=== PATIENT | female | born 1985 | race Caucasian/White ===

== ENCOUNTER → 2018-11-02 | Outpatient (CLI) | payer OTHER ==
--- NOTE | 2018-11-02 14:37 | US ---
EXAMINATION TYPE: US thyroid st tissue head/neck DATE OF EXAM: 11/02/2018 COMPARISON: 05/04/2011 CLINICAL HISTORY: E04.1 SINGLE THYROID NODULE. Assess for possible nodules, abnormal labs, not on med s yet GLAND SIZE: Right Lobe: 5.3 x 1.8 x 1.8 cm Overall Parenchyma: heterogenous Left Lobe: 4.5 x 1.8 x 1.5 cm Overall Parenchyma: heterogeneous Isthmus Thickness: 0.4 cm NODULES RIGHT: # of nodules measured on right: 0 LEFT: # of nodules measured on left: 0 ISTHMUS: # of nodules measured in the isthmus: 0 Bilateral neck scanned, no evidence of lymphadenopathy. Diffusely heterogeneous lobes bilaterally IMPRESSION: Diffuse thyroid heterogeneity and hypervascularity can be seen as sequela of thyroiditis. Additionally this can be seen in chronic Em's thyroiditis with chronic lymphocytic infiltrati on.
== END | disposition home or self-care (01) ==
LOC: RADUSWWP 13:31
PROVIDERS: ATTEND Family Medicine
DX: E07.9 Disorder of thyroid, unspecified (principal)
CPT/HCPCS: 76536

== ENCOUNTER → 2018-11-07 | Outpatient (CLI) | payer OTHER ==
--- NOTE | 2018-11-24 19:29 | EM ---
EVENT MONITOR AGE:: 33 SEX:: Female The patient was monitored between November 07 and November 20, 2018. The rhythm strip revealed sinus mechanism with episodes of sinus tachycardia and one rhythm strip of single PVC. OTIS / ATIFN: [id number] /
== END | disposition home or self-care (01) ==
LOC: RADECHMAIN 12:11
PROVIDERS: ATTEND Family Medicine
DX: I49.3 Ventricular premature depolarization (principal); R00.0 Tachycardia, unspecified
CPT/HCPCS: 93270

== ENCOUNTER 2019-03-11 20:27 | Emergency (ER) | payer OTHER ==
[2019-03-11] MEDS ORDERED: SODIUM CHLORIDE 0.9% 1,000 ML IV STA ×2 (21:50)
--- NOTE | 2019-03-11 22:30 | ED ---
Back Pain HPI - General Chief Complaint: Back Pain/Injury Stated Complaint: Abn labs Time Seen by Provider: 03/11/19 21:22 Source: patient, family, RN notes reviewed, old records reviewed Limitations: no limitations - History of Present Illness Initial Comments: This is a 33-year-old female the ER for evaluation she presents today for evaluation regards to back pain and weakness history of renal failure history of kidney pain. Pain is increasing, weight loss is increasing. Patient having difficulty taking in oral fluids and food. Patient has decreased urinary output. Patient presents from urgent care center to ER for further evaluation and management patient has history of similar complaints she states she was admitted to a different hospital about a year ago at this time MD Complaint: back pain, other (History of kidney disease, patient is poor historian regarding diaper cause) -: hour(s) Similar Symptoms Previously: Yes Place: home Radiation: none Severity: moderate Severity scale (1-10): 4 Consistency: constant Improves With: none Worsens With: none Associated Symptoms: denies other symptoms - Related Data Previous Rx's Medication Instructions Recorded Nitrofurantoin Monohyd/M-Cryst 100 mg PO Q12HR #20 cap 03/12/19 [Macrobid] Allergies Allergy/AdvReac Type Severity Reaction Status Date / Time Penicillins Allergy Vomiting Verified 03/11/19 21:51 Review of Systems ROS Statement: Those systems with pertinent positive or pertinent negative responses have been documented in the HPI. ROS Other: All systems not noted in ROS Statement are negative. Past Medical History Past Medical History: Thyroid Disorder Additional Past Medical History / Comment(s): hashimotos, History of Any Multi-Drug Resistant Organisms: None Reported Past Surgical History: Orthopedic Surgery, Tonsillectomy Additional Past Surgical History / Comment(s): knee Past Psychological History: Anxiety Smoking Status: Never smoker Past Alcohol Use History: Rare Past Drug Use History: None Reported General Exam Limitations: no limitations General appearance: alert, in no apparent distress Head exam: Present: atraumatic, normocephalic, normal inspection Eye exam: Present: normal appearance, EOMI. Absent: scleral icterus, conjunctival injection, periorbital swelling ENT exam: Present: normal exam, mucous membranes moist Neck exam: Present: normal inspection. Absent: tenderness, meningismus, lymphadenopathy Respiratory exam: Present: normal lung sounds bilaterally. Absent: respiratory distress, wheezes, rales, rhonchi, stridor Cardiovascular Exam: Present: regular rate, normal rhythm, tachycardia, normal heart sounds. Absent: systolic murmur, diastolic murmur, rubs, gallop, clicks GI/Abdominal exam: Present: soft, normal bowel sounds. Absent: distended, te nderness, guarding, rebound, rigid Extremities exam: Present: normal inspection, full ROM, normal capillary refill. Absent: tenderness, pedal edema, joint swelling, calf tenderness Back exam: Present: normal inspection Neurological exam: Present: alert, oriented X3, CN II-XII intact Psychiatric exam: Present: normal affect, normal mood Skin exam: Present: warm, dry, intact, normal color. Absent: rash Course Vital Signs 03/11/19 03/11/19 20:40 23:33 Temperature 99.3 F Pulse Rate 110 H 89 Respiratory 20 19 Rate Blood Pressure 108/69 106/76 O2 Sat by Pulse 96 97 Oximetry - Reevaluation(s) Reevaluation #1: 03/12/19 00:08 Medical record is reviewed Reevaluation #2: 03/12/19 00:08 patient is tolerating oral medications Medical Decision Making - Medical Decision Making 33 male to the ED c/o not feeling well back pain, pyelonephritis, patient will be discharged on antibiotics to return if symptoms worsen - Lab Data Result diagrams: 03/11/19 22:26 03/11/19 22:26 Lab Results 03/11/19 03/11/19 03/11/19 Range/Units 22:26 22:26 22:46 WBC 11.9 H (3.8-10.6) k/uL RBC 4.11 (3.80-5.40) m/uL Hgb 12.6 (11.4-16.0) gm/dL Hct 34.7 (34.0-46.0) % MCV 84.5 (80.0-100.0) fL MCH 30.7 (25.0-35.0) pg MCHC 36.3 (31.0-37.0) g/dL RDW 11.9 (11.5-15.5) % Plt Count 171 (150-450) k/uL Neutrophils % 72 % Lymphocytes % 16 % Monocytes % 8 % Eosinophils % 1 % Basophils % 1 % Neutrophils # 8.5 H (1.3-7.7) k/uL Lymphocytes # 1.9 (1.0-4.8) k/uL Monocytes # 1.0 (0-1.0) k/uL Eosinophils # 0.1 (0-0.7) k/uL Basophils # 0.1 (0-0.2) k/uL Sodium 133 L (137-145) mmol/L Potassium 3.3 L (3.5-5.1) mmol/L Chloride 98 (98-107) mmol/L Carbon Dioxide 25 (22-30) mmol/L Anion Gap 10 mmol/L BUN 10 (7-17) mg/dL Creatinine 0.64 (0.52-1.04) mg/dL Est GFR (CKD-EPI)AfAm >90 (>60 ml/min/1.73 sqM) Est GFR (CKD-EPI)NonAf >90 (>60 ml/min/1.73 sqM) Glucose 122 H (74-99) mg/dL Calcium 8.5 (8.4-10.2) mg/dL Phosphorus 2.4 L (2.5-4.5) mg/dL Magnesium 1.9 (1.6-2.3) mg/dL Total Bilirubin 0.3 (0.2-1.3) mg/dL AST 24 (14-36) U/L ALT 17 (9-52) U/L Alkaline Phosphatase 60 (38-126) U/L Creatine Kinase 451 H (30-135) U/L Total Protein 6.7 (6.3-8.2) g/dL Albumin 3.7 (3.5-5.0) g/dL Urine Color Yellow Urine Appearance Cloudy H (Clear) Urine pH 6.0 (5.0-8.0) Ur Specific [place] 1.022 (1.001-1.035) Urine Protein 1+ H (Negative) Urine Glucose (UA) Negative (Negative) Urine Ketones 2+ H (Negative) Urine Blood Large H (Negative) Urine Nitrite Negative (Negative) Urine Bilirubin Negative (Negative) Urine Urobilinogen 2.0 (<2.0) mg/dL Ur Leukocyte Esterase Large H (Negative) Urine RBC 6 H (0-5) /hpf Urine WBC >182 H (0-5) /hpf Urine WBC Clumps Few H (None) /hpf Ur Squamous Epith Cells 16 H (0-4) /hpf Urine Bacteria Occasional H (None) /hpf Urine Mucus Many H (None) /hpf - EKG Data -: EKG Interpreted by Me (EKG shows sinus rhythm rate of 70, VA 140, QRS 94, QTC 443) - Radiology Data Radiology results: report reviewed (CT ofabdomen and pelvis is negative for ac re disease), image reviewed Disposition Clinical Impression: UTI (urinary tract infection), Pyelonephritis Disposition: HOME SELF-CARE Condition: Good Prescriptions: Nitrofurantoin Monohyd/M-Cryst [Macrobid] 100 mg PO Q12HR #20 cap Is patient prescribed a controlled substance at d/c from ED?: No Referrals: Angel Forrester DO [Primary Care Provider] - 1-2 days
[2019-03-11 22:37] LABS: Basophils # (A) 0.1 k/uL (0-0.2); Basophils % (A) 1 %; Eosinophils # (A) 0.1 k/uL (0-0.7); Eosinophils % (A) 1 %; HCT 34.7 % (34.0-46.0); HGB 12.6 gm/dL (11.4-16.0); Lymphocytes # (A) 1.9 k/uL (1.0-4.8); Lymphocytes % (A) 16 %; MCH 30.7 pg (25.0-35.0); MCHC 36.3 g/dL (31.0-37.0); MCV 84.5 fL (80.0-100.0); Mean Platelet Volume 6.2; Monocytes % (A) 8 %; Neutrophils # (A) 8.5 k/uL (1.3-7.7); Neutrophils % (A) 72 %; Platelet Count 171 k/uL (150-450); RBC 4.11 m/uL (3.80-5.40); RDW 11.9 % (11.5-15.5); WBC 11.9 k/uL (3.8-10.6)
[2019-03-11] MEDS: MORPHINE SULFATE 4 MG/ML SYRINGE IVP STA ×2 (22:39→23:32)
[2019-03-11 22:48] LABS: ALT 17 U/L (9-52); AST 24 U/L (14-36); African American GFR (CKD) >90 (>60 ml/min/1.73 sqM); Albumin 3.7 g/dL (3.5-5.0); Alkaline Phosphatase 60 U/L (38-126); Anion Gap 10 mmol/L; Blood Urea Nitrogen 10 mg/dL (7-17); Calcium 8.5 mg/dL (8.4-10.2); Carbon Dioxide 25 mmol/L (22-30); Chloride 98 mmol/L (98-107); Creatine Kinase 451 U/L (30-135); Glucose 122 mg/dL (74-99); Magnesium 1.9 mg/dL (1.6-2.3); Phosphorus 2.4 mg/dL (2.5-4.5); Potassium 3.3 mmol/L (3.5-5.1); Sodium 133 mmol/L (137-145); Total Bilirubin 0.3 mg/dL (0.2-1.3); Total Protein 6.7 g/dL (6.3-8.2)
[2019-03-11 22:56] LABS: Appearance,Urine Cloudy (Clear); Bacteria,Urine Occasional /hpf; Bilirubin,Urine Negative (Negative); Blood,Urine Large (Negative); Color,Urine Yellow; Glucose,Urine (UA) Negative (Negative); Ketones,Urine 2+ (Negative); Leukocyte Esterase,Urine Large (Negative); Mucus,Urine Many /hpf; Nitrite,Urine Negative (Negative); Protein,Urine 1+ (Negative); RBC,Urine 6 /hpf (0-5); Specific Gravity,Urine 1.022 (1.001-1.035); Squamous Epithelial Cell,Urine 16 /hpf (0-4); WBC,Urine >182 /hpf (0-5)
--- NOTE | 2019-03-11 23:05 | CT ---
EXAMINATION TYPE: CT abdomen pelvis wo con DATE OF EXAM: 03/11/2019 COMPARISON: None HISTORY: bilateral flank pain CT DLP: 271.4 mGycm Automated exposure control for dose reduction was used. TECHNIQUE: Helical acquisition of images was performed from the lung bases through the pelvis. FINDINGS: Lung bases are clear. There is no pleural effusion. Heart size is normal. Liver spleen pancreas gallbladder appear normal. Bile ducts are not dilated. There is no adrenal mass . Stomach appears normal. Kidneys have normal size. There is no hydronephrosis. Ureters are not dilat ed. There is no retroperitoneal adenopathy. Bladder distends smoothly. There is no free fluid in the pelvis. Lumbar spine appears intact. Bony pelvis is intact. Disc spaces are normal. Uterus is retrove rted. There is no mesenteric edema. There is no ascites or free air. Appendix is not seen. There is no sign of thickened appendix. IMPRESSION: NEGATIVE CT SCAN ABDOMEN AND PELVIS. NO EVIDENCE OF RENAL STONE OR OBSTRUCTION. NO SIGN OF APPENDICIT IS.
[2019-03-12 00:23] VITALS: RESP 18
[2019-03-12 02:17] VITALS: BP 100/69; PULSE 93; TEMP 98.1
== END 2019-03-12 02:17 | disposition home or self-care (01) ==
LOC: EC 20:27
DX: N12 Tubulo-interstitial nephritis, not specified as acute or chronic (principal); R00.0 Tachycardia, unspecified; R53.1 Weakness; R63.4 Abnormal weight loss; Z88.0 Allergy status to penicillin; Z87.448 Personal history of other diseases of urinary system; Z68.1 Body mass index [BMI] 19.9 or less, adult; Z53.20 Procedure and treatment not carried out because of patient's decision for unspecified reasons
CPT/HCPCS: 36415 ×2; 93005; 80053; 82550; 83735; 84100; 85025; 81001; 87040; 74176; 99284; 96365; 96366; 96361 ×2; J0696

== ENCOUNTER → 2019-06-27 | Outpatient (CLI) | payer OTHER ==
--- NOTE | 2019-06-28 07:21 | US ---
EXAMINATION TYPE: US thyroid st tissue head/neck DATE OF EXAM: 06/27/2019 COMPARISON: US 2016 CLINICAL HISTORY: E06.3 Autoimmune thyroiditis. Autoimmune thyroiditis. Patient's mother had hx of th yroid cancer. GLAND SIZE: Right Lobe: 5.2 x 1.9 x 1.5 cm Overall Parenchyma: heterogenous Left Lobe: 4.9 x 2.0 x 1.3 cm Overall Parenchyma: heterogeneous Isthmus Thickness: 0.31 cm NODULES RIGHT: # of nodules measured on right: 1 1. 0.5 X 0.5 x 0.3 cm anechoic cystic nodule at the lower pole with well-defined margins. This nod ule is wider than tall and shows peripheral vascularity. Prior size: no prior LEFT: # of nodules measured on left: 1 1. 0.4 X 0.6 x 0.3 cm anechoic cystic nodule at the mid pole with well-defined margins. This nodul e is wider than tall and shows peripheral vascularity. Prior size: no prior ISTHMUS: # of nodules measured in the isthmus: 0 Bilateral neck scanned. Hypoechoic area with hyperechoic center and vascularity (lymph node) seen rig ht neck measurin.6 x 0.7 x 0.3 cm. Hypoechoic area with hyperechoic center and vascularity (lymph node) seen left neck measurin.6 x 0.6 x 0.6 cm. Hypoechoic area seen (lymph node) inferior to left thyroid lobe measurin.0 x 0.6 x 0.7 cm. IMPRESSION: The thyroid gland is diffusely heterogenous and hyperechoic, which can be seen in acute o r chronic thyroiditis. There are subcentimeter cystic-appearing bilateral thyroid nodules that appear benign.
== END | disposition home or self-care (01) ==
LOC: RADUSWWP 16:56
PROVIDERS: ATTEND Family Medicine
DX: E04.2 Nontoxic multinodular goiter (principal); E07.89 Other specified disorders of thyroid
CPT/HCPCS: 76536

== ENCOUNTER 2019-08-31 10:09 | Emergency (ER) | payer OTHER ==
[2019-08-31 10:14] VITALS: TEMP 97.9
[2019-08-31] MEDS ORDERED: SODIUM CHLORIDE 0.9% 1,000 ML IV STA (11:06)
[2019-08-31] MEDS ORDERED: ACETAMINOPHEN TAB 500 MG TAB PO STA (11:06)
--- NOTE | 2019-08-31 11:17 | ED ---
General Adult HPI - General Chief complaint: Abdominal Pain Stated complaint: poss ectopic Time Seen by Provider: 08/31/19 10:19 Source: patient, RN notes reviewed Mode of arrival: ambulatory - History of Present Illness Initial comments: 33-year-old female presents to the emergency dept for chief complaint of abdominal pain. Patient states she found out she was a few days ago. States that yesterday around 10 PM she started to have abdominal pain and vaginal bleeding. States this is mostly in the right lower abdomen. Patient states she called her [facility] Dr. Pearl and the nurse told her to come to the emergency department for evaluation of ectopic . Patient denies bleeding through a pad an hour. Patient has no other complaints at this time including shortness of breath, chest pain, nausea or vomiting, headache, or visual changes. - Related Data Previous Rx's Medication Instructions Recorded Nitrofurantoin Monohyd/M-Cryst 100 mg PO Q12HR #20 cap 03/12/19 [Macrobid] Allergies Allergy/AdvReac Type Severity Reaction Status Date / Time Penicillins Allergy Vomiting Verified 08/31/19 10:14 Review of Systems ROS Statement: Those systems with pertinent positive or pertinent negative responses have been documented in the HPI. ROS Other: All systems not noted in ROS Statement are negative. Past Medical History Past Medical History: Thyroid Disorder Additional Past Medical History / Comment(s): hashimotos, History of Any Multi-Drug Resistant Organisms: None Reported Past Surgical History: Orthopedic Surgery, Tonsillectomy Additional Past Surgical History / Comment(s): knee Past Psychological History: Anxiety Smoking Status: Never smoker Past Alcohol Use History: Rare Past Drug Use History: None Reported General Exam General appearance: alert, in no apparent distress Head exam: Present: atraumatic, normocephalic, normal inspection Eye exam: Present: normal appearance, PERRL, EOMI. Absent: scleral icterus, conjunctival injection, periorbital swelling ENT exam: Present: normal exam, mucous membranes moist Neck exam: Present: normal inspection, full ROM. Absent: tenderness, mening ismus, lymphadenopathy Respiratory exam: Present: normal lung sounds bilaterally. Absent: respiratory distress, wheezes, rales, rhonchi, stridor Cardiovascular Exam: Present: regular rate, normal rhythm, normal heart sounds. Absent: systolic murmur, diastolic murmur, rubs, gallop, clicks GI/Abdominal exam: Present: soft, normal bowel sounds. Absent: distended, tenderness, guarding, rebound, rigid External exam: Present: normal external exam. Absent: erythema, swelling, lesions, lacerations, ecchymosis Speculum exam: Present: vaginal bleeding (Minimal vaginal bleeding). Absent: normal speculum exam, erythema, vaginal discharge, cervical discharge, foreign body, tissue, laceration By manual exam: Present: adnexal tenderness (Right adnexal tenderness), uterine tenderness (Uterine tenderness). Absent: normal by manual exam, cervical motion tenderness, adnexal mass, uterine enlargement Neurological exam: Present: alert Course Vital Signs 08/31/19 08/31/19 08/31/19 10:10 10:13 11:13 Temperature 97.9 F Pulse Rate 99 83 Respiratory 16 20 20 Rate Blood Pressure 161/93 118/78 O2 Sat by Pulse 99 100 Oximetry Medical Decision Making - Medical Decision Making Patient is a 33-year-old female. She is well-appearing. Her vitals are stable. Physical exam did reveal right lower quadrant tenderness with rebound and guarding. CBC CMP unremarkable. HCG Quant is 6.9. Troponin is negative. Ultrasound obtained which showed findings likely to reflect too early to visualize IUP but spontaneous and ectopic in the differential. Patient should be about 4 weeks at this point. I called Dr. Santana who is on-call for Dr. Pearl. He states the patient likely miscarried as it would need to be trending down given a positive urine preg would have to show an hCG of 50. At this time given her positive exam finds her cannot rule out appendicitis. He states he would not treat this patient as a burning patient and would get a CAT scan to rule out other etiologies. I do agree with this. I discussed this with patient and she is also in agreement. CT abdomen and pelvis showed presence of a right ovarian or adnexal mass and pelvic free fluid which increases possibility of ectopic when correlating CT with ultrasound. Differential remains this versus too early to visualize and spontaneous . Appendix appears normal. I discussed this with Dr. Santana. He did come and evaluate patient. Patient's abdominal exam has improved and her pain is much more managed. Discussed options with patient including watching overnight. However given improvement in symptoms patient is agreeable to monitoring herself at home and returning here for any worsening symptoms. She will be given a prescription for repeat hCG on Tuesday as it is likely she miscarried as well as to evaluate further for ectopic . Discussed that she will likely have a repeat ultrasound outpatient after she sees her [facility]. She will call the office Tuesday for an appointment. She will return for any worsening symptoms which were discussed thoroughly with her. Str ict return precautions given. - Lab Data Result diagrams: 08/31/19 10:25 08/31/19 10: Lab Results 08/31/19 08/31/19 08/31/19 Range/Units 10:25 10:25 10:25 WBC 6.9 (3.8-10.6) k/uL RBC 4.85 (3.80-5.40) m/uL Hgb 14.9 (11.4-16.0) gm/dL Hct 44.1 (34.0-46.0) % MCV 90.8 (80.0-100.0) fL MCH 30.7 (25.0-35.0) pg MCHC 33.8 (31.0-37.0) g/dL RDW 12.1 (11.5-15.5) % Plt Count 251 (150-450) k/uL Neutrophils % 70 % Lymphocytes % 20 % Monocytes % 7 % Eosinophils % 1 % Basophils % 0 % Neutrophils # 4.9 (1.3-7.7) k/uL Lymphocytes # 1.4 (1.0-4.8) k/uL Monocytes # 0.5 (0-1.0) k/uL Eosinophils # 0.1 (0-0.7) k/uL Basophils # 0.0 (0-0.2) k/uL Sodium 139 (137-145) mmol/L Potassium 3.5 (3.5-5.1) mmol/L Chloride 103 (98-107) mmol/L Carbon Dioxide 24 (22-30) mmol/L Anion Gap 12 mmol/L BUN 10 (7-17) mg/dL Creatinine 0.63 (0.52-1.04) mg/dL Est GFR (CKD-EPI)AfAm >90 (>60 ml/min/1.73 sqM) Est GFR (CKD-EPI)NonAf >90 (>60 ml/min/1.73 sqM) Glucose 91 (74-99) mg/dL Calcium 9.3 (8.4-10.2) mg/dL Total Bilirubin 0.4 (0.2-1.3) mg/dL AST 30 (14-36) U/L ALT 15 (4-34) U/L Alkaline Phosphatase 72 (38-126) U/L Total Protein 8.6 H (6.3-8.2) g/dL Albumin 5.1 H (3.5-5.0) g/dL HCG, Quant 6.9 mIU/mL Urine Color Urine Appearance (Clear) Urine pH (5.0-8.0) Ur Specific [place] (1.001-1.035) Urine Protein (Negative) Urine Glucose (UA) (Negative) Urine Ketones (Negative) Urine Blood (Negative) Urine Nitrite (Negative) Urine Bilirubin (Negative) Urine Urobilinogen (<2.0) mg/dL Ur Leukocyte Esterase (Negative) Urine RBC (0-5) /hpf Urine WBC (0-5) /hpf Ur Squamous Epith Cells (0-4) /hpf Amorphous Sediment (None) /hpf Urine Bacteria (None) /hpf Trichomonas Ag (Rapid) (Negative) Blood Type O Positive Blood Type Recheck O Pos Bld Type Recheck Status No 08/31/19 08/31/19 Range/Units 10:29 11:10 WBC (3.8-10.6) k/uL RBC (3.80-5.40) m/uL Hgb (11.4-16.0) gm/dL Hct (34.0-46.0) % MCV (80.0-100.0) fL MCH (25.0-35.0) pg MCHC (31.0-37.0) g/dL RDW (11.5-15.5) % Plt Count (150-450) k/uL Neutrophils % % Lymphocytes % % Monocytes % % Eosinophils % % Basophils % % Neutrophils # (1.3-7.7) k/uL Lymphocytes # (1.0-4.8) k/uL Monocytes # (0-1.0) k/uL Eosinophils # (0-0.7) k/uL Basophils # (0-0.2) k/uL Sodium (137-145) mmol/L Potassium (3.5-5.1) mmol/L Chloride (98-107) mmol/L Carbon Dioxide (22-30) mmol/L Anion Gap mmol/L BUN (7-17) mg/dL Creatinine (0.52-1.04) mg/dL Est GFR (CKD-EPI)AfAm (>60 ml/min/1.73 sqM) Est GFR (CKD-EPI)NonAf (>60 ml/min/1.73 sqM) Glucose (74-99) mg/dL Calcium (8.4-10.2) mg/dL Total Bilirubin (0.2-1.3) mg/dL AST (14-36) U/L ALT (4-34) U/L Alkaline Phosphatase (38-126) U/L Total Protein (6.3-8.2) g/dL Albumin (3.5-5.0) g/dL HCG, Quant mIU/mL Urine Color Yellow Urine Appearance Clear (Clear) Urine pH 7.0 (5.0-8.0) Ur Specific [place] 1.005 (1.001-1.035) Urine Protein Trace H (Negative) Urine Glucose (UA) Negative (Negative) Urine Ketones Negative (Negative) Urine Blood Large H (Negative) Urine Nitrite Negative (Negative) Urine Bilirubin Negative (Negative) Urine Urobilinogen <2.0 (<2.0) mg/dL Ur Leukocyte Esterase Negative (Negative) Urine RBC 1 (0-5) /hpf Urine WBC 2 (0-5) /hpf Ur Squamous Epith Cells 1 (0-4) /hpf Amorphous Sediment Rare H (None) /hpf Urine Bacteria Rare H (None) /hpf Trichomonas Ag (Rapid) Negative (Negative) Blood Type Blood Type Recheck Bld Type Recheck Status Disposition Clinical Impression: Ovarian cyst, Abdominal pain Disposition: HOME SELF-CARE Condition: Good Instructions (If sedation given, give patient instructions): Abdominal Pain (ED) Additional Instructions: Repeat hCG on Tuesday. The results will be sent to Dr. Pearl. Call Dr. Pearl's office on Tuesday to schedule an appointment. If you have any worsening symptoms over the weekend such as increased abdominal pain return to the emergency department. You may take Tylenol 3 for pain but do not drive or operate machinery while taking. Is patient prescribed a controlled substance at d/c from ED?: No Referrals: Mirela Rivas MD [Primary Care Provider] - 1-2 days Brett Pearl MD [STAFF PHYSICIAN] - 1-2 days Time of Disposition: 15:15
[2019-08-31 11:22] VITALS: RESP 20
[2019-08-31 11:24] VITALS: PULSE 83
[2019-08-31 11:58] LABS: Basophils % (A) 0 %; Eosinophils # (A) 0.1 k/uL (0-0.7); Eosinophils % (A) 1 %; HCT 44.1 % (34.0-46.0); HGB 14.9 gm/dL (11.4-16.0); Lymphocytes # (A) 1.4 k/uL (1.0-4.8); Lymphocytes % (A) 20 %; MCH 30.7 pg (25.0-35.0); MCHC 33.8 g/dL (31.0-37.0); MCV 90.8 fL (80.0-100.0); Mean Platelet Volume 7.6; Monocytes # (A) 0.5 k/uL (0-1.0); Monocytes % (A) 7 %; Neutrophils # (A) 4.9 k/uL (1.3-7.7); Neutrophils % (A) 70 %; Platelet Count 251 k/uL (150-450); RBC 4.85 m/uL (3.80-5.40); RDW 12.1 % (11.5-15.5); WBC 6.9 k/uL (3.8-10.6)
[2019-08-31 12:10] LABS: ALT 15 U/L (4-34); AST 30 U/L (14-36); African American GFR (CKD) >90 (>60 ml/min/1.73 sqM); Albumin 5.1 g/dL (3.5-5.0); Alkaline Phosphatase 72 U/L (38-126); Anion Gap 12 mmol/L; Blood Urea Nitrogen 10 mg/dL (7-17); Calcium 9.3 mg/dL (8.4-10.2); Carbon Dioxide 24 mmol/L (22-30); Chloride 103 mmol/L (98-107); Glucose 91 mg/dL (74-99); Non-African American GFR(CKD) >90 (>60 ml/min/1.73 sqM); Potassium 3.5 mmol/L (3.5-5.1); Sodium 139 mmol/L (137-145); Total Bilirubin 0.4 mg/dL (0.2-1.3); Total Protein 8.6 g/dL (6.3-8.2)
[2019-08-31 12:11] LABS: Amorphous Sediment,Urine Rare /hpf; Appearance,Urine Clear (Clear); Bacteria,Urine Rare /hpf; Bilirubin,Urine Negative (Negative); Blood,Urine Large (Negative); Color,Urine Yellow; Glucose,Urine (UA) Negative (Negative); Ketones,Urine Negative (Negative); Leukocyte Esterase,Urine Negative (Negative); Nitrite,Urine Negative (Negative); Protein,Urine Trace (Negative); RBC,Urine 1 /hpf (0-5); Specific Gravity,Urine 1.005 (1.001-1.035); Squamous Epithelial Cell,Urine 1 /hpf (0-4); Urobilinogen,Urine <2.0 mg/dL (<2.0); WBC,Urine 2 /hpf (0-5)
--- NOTE | 2019-08-31 12:21 | US ---
EXAMINATION TYPE: Transabdominal DATE OF EXAM: 08/31/2019 12:04 PM COMPARISON: NONE CLINICAL HISTORY: pain, r/o ectopic. Right side pain. No hx ectopic. EXAM PERFORMED: Transvaginal (TV) and Transabdominal (TA) EXAM MEASUREMENTS: GESTATIONAL AGE / DATING Dates by LMP: (4 weeks/4 days) EDC: 05/05/2020 Dates by Current Scan for: No IUP seen at this time MATERNAL ANATOMY Uterus: 7.6 x 4.9 x 4.2 cm Right Ovary: 5.1 x 4.2 x 4.2 cm. Cystic appearing lesion = 3.7 x 3.6 x 3.5 cm Left Ovary: 2.4 x 1.4 x 0.9 cm Post CDS / Adnexa: no free fluid in CDS. FF seen adjacent to right ovary. Presence of free fluid: no Presence of corpus luteal cyst: no Presence of subchorionic bleed: no GESTATION / SURVEY IUP: No IUP seen at this time Date of LMP: 07/30/2019, [id number] Beta HcG (if available): Not available at this time Heterogeneous somewhat lobulated retroverted uterus. Endometrium poorly defined on transabdominal mathew ging. On transvaginal imaging it is better seen measuring up to 7 mm in thickness. No gestational sac , yolk sac, or pole is present. No free fluid in pelvic cul-de-sac. There is however some free fluid adjacent to right ovary. Both ovaries seen with asymmetric enlargement of right ovary versus left ovary. There is 3.7 cm thin- walled cyst or possible corpus luteal cyst in the right ovary noted. IMPRESSION: Findings likely reflect too early to visualize intrauterine but spontaneous abo rtion is in the differential and ectopic is not excluded. Serial beta hCG and ultrasound fo llow-up advised.
[2019-08-31 12:26] LABS: HCG,Quantitative Serum 6.9 mIU/mL
--- NOTE | 2019-08-31 14:24 | CT ---
EXAMINATION TYPE: CT abdomen pelvis w con DATE OF EXAM: 08/31/2019 HISTORY: RLQ pain and right pelvic pain. CT DLP: 473.8mGycm Automated Exposure Control for Dose Reduction was Utilized. CONTRAST: CT scan of the abdomen and pelvis is performed without oral but with IV Contrast, patient injected wi th 100 mL of Isovue 300. COMPARISON: CT abdomen and pelvis March 11, 2019. Pelvic ultrasound earlier today. FINDINGS: LUNG BASES: No significant abnormality is appreciated. LIVER/GB: No significant abnormality is appreciated. PANCREAS: No significant abnormality is seen. SPLEEN: No significant abnormality is seen. ADRENALS: No significant abnormality is seen. KIDNEYS: No significant abnormality is seen. BOWEL: Low-lying cecum into the right pelvis. Portion of normal-appearing appendix is noted coronal i mage 37. No suspicious small or large bowel dilatation. UTERUS/ADNEXA: There is heterogeneous retroverted uterus projecting to the left of midline. Central h ypodense endometrium is significantly more prominent versus transvaginal pelvic ultrasound measuring up to 16 mm sagittal image 53. Trace free fluid in the right pelvis axial image 58 is redemonstrated corresponding to ultrasound. Left ovary is identified on CT axial image 60 and is nonenlarged. Right ovary is asymmetrically enlarged with fairly simple-appearing 4.9 x 3.1 cm cyst axial image 61. No arcos spicious surrounding fat stranding noted. LYMPH NODES: No greater than 1cm abdominal or pelvic lymph nodes are appreciated. OSSEOUS STRUCTURES: No significant abnormality is seen. OTHER: No significant additional abnormality is seen. IMPRESSION: Presence of right ovarian or adnexal mass and pelvic free fluid increases possibility of ectopic when correlating CT with ultrasound. Differential remains this versus too early to visualize intrauterine and spontaneous . Source of acute right-sided pain not clear ly identified otherwise.
[2019-08-31] MEDS ORDERED: ACET/COD 300 MG/30 MG STARTER PACK 6 TAB BTL PO STA (15:17)
[2019-08-31 15:25] VITALS: BP 115/75
--- NOTE | 2019-08-31 17:00 | P.OBCN ---
History of Present Illness Consult date: 08/31/19 Requesting physician: Geremias Canela Reason for consult: pelvic pain Chief complaint: Pelvic pain ovarian cyst History of present illness: Gabrielle is a 33-year-old female who arrives to the emergency department complaining of right lower quadrant pain. She noted that the pain began at approximately 10 PM last night was approximately 6 out of 10 and continued through the night. She called her office the morning and related that she had a positive Precis test on Tuesday and that she had severe acute right lower quadrant pain and [facility] out [facility] . Once the ER an ultrasound, blood work and CT were all done. Blood work for revealed a beta hCG of 6.9 which is either indeterminant or negative depending on her scale. An ultrasound was done that showed a 3-4 cm right ovarian cyst with flow noted to the ovary. No evidence of other mass or issues, there is a scant amount of free fluid noted around this ovary. No evidence of ectopic . Computed tomography scan verifies this finding. I did go and speak with the patient and do an exam. Heart was regular, lungs were clear and extremities without pain. Her vital signs were stable and she was afebrile and she was hemodynamically stable. In discussing options with her, we discussed first potentially admitting her for observation status and reevaluating with repeat beta-hCG and lab work in the morning but since her pain was a 6 initially was down to 2-3 after being in the emergency room and allowing time for the symptoms to settle. She declined admission. I also discussed potential diagnostic laparoscopy to verify a simple cyst and no other findings and to rule out possible torsion, but at this time her abdominal exam is not consistent with a surgical abdomen. She does not have any rebound at this time and minimal guarding and no rigidity. Bowel sounds are noted and otherwise she is relating that her pain is significantly improved. She has opted to be discharged home particular in light of the covid 19 outbreak that we have at this time. She is aware should she have significant increase in pain lightheadedness dizziness signs of hypovolemia or other problems she is to return immediately back to the emergency room. She is otherwise going to repeat her quantitative beta-hCG in the next few days and follow with Dr. Pearl. Likely she will need another ultrasound in 6-8 weeks to reassess the right ovarian cyst. She and I did discuss possibility of torsion, although it does not appear that there is a torsion present now cannot be completely excluded. Again she declined surgical options or admission to the hospital and will follow up on an outpatient basis. Past Medical History Past Medical History: Thyroid Disorder Additional Past Medical History / Comment(s): hashimotos, History of Any Multi-Drug Resistant Organisms: None Reported Past Surgical History: Orthopedic Surgery, Tonsillectomy Additional Past Surgical History / Comment(s): knee Past Psychological History: Anxiety Smoking Status: Never smoker Past Alcohol Use History: Rare Past Drug Use History: None Reported Medications and Allergies Home Medications Medication Instructions Recorded Confirmed Type Nitrofurantoin Monohyd/M-Cryst 100 mg PO Q12HR #20 cap 03/12/19 Rx [Macrobid] Allergies Allergy/AdvReac Type Severity Reaction Status Date / Time Penicillins Allergy Vomiting Verified 08/31/19 10:14 Exam Osteopathic Statement: *. No significant issues noted on an osteopathic structural exam other than those noted in the History and Physical/Consult. Vital Signs Temp Pulse Resp BP Pulse Ox 08/31/19 15:35 20 08/31/19 15:00 20 115/75 08/31/19 14:00 20 121/74 08/31/19 13:30 102/72 100 08/31/19 13:00 20 109/68 08/31/19 12:30 118/74 100 08/31/19 12:00 20 109/71 08/31/19 11:30 118/78 100 08/31/19 11:23 100 08/31/19 11:13 83 20 118/78 100 08/31/19 10:13 20 08/31/19 10:10 97.9 F 99 16 161/93 99 Intake and Output 08/31/19 08/31/19 08/31/19 06:59 14:59 22:59 Other: Voiding Method Toilet Weight 46.266 kg Results Result Diagrams: 08/31/19 10:25 08/31/19 10:25 Abnormal Lab Results - Last 24 Hours (Table) 08/31/19 08/31/19 Range/Units 10:25 10:29 Total Protein 8.6 H (6.3-8.2) g/dL Albumin 5.1 H (3.5-5.0) g/dL Urine Protein Trace H (Negative) Urine Blood Large H (Negative) Amorphous Sediment Rare H (None) /hpf Urine Bacteria Rare H (None) /hpf
[2019-09-02 13:59] LABS: C. trachomatis,PCR Negative (Neg,Equiv); Chlamydia trachomatis Source Vagina; N. gonorrhoeae,PCR Negative (Neg,Equiv); Neisseria Source Vagina
== END 2019-08-31 15:38 | disposition home or self-care (01) ==
LOC: EC 10:09
DX: O34.81 Maternal care for other abnormalities of pelvic organs, first trimester (principal); N83.201 Unspecified ovarian cyst, right side; Z3A.00 Weeks of gestation of pregnancy not specified; Z88.0 Allergy status to penicillin
CPT/HCPCS: 36415; 86900; 86901; 80053; 85025; 81001; 84702; 87808; 87491; 74177; 87591; 76801; 76817; 99285; Q9967

== ENCOUNTER → 2019-09-03 | Outpatient (CLI) | payer OTHER | END | disposition home or self-care (01) | LOC: LABWHC1 14:19 | PROVIDERS: ATTEND Physician Assistant Medical | DX: R10.9 Unspecified abdominal pain (principal) | CPT/HCPCS: 36415; 84702 ==

== ENCOUNTER → 2020-02-01 | Outpatient (CLI) | payer OTHER ==
--- NOTE | 2020-02-01 15:57 | US ---
EXAMINATION TYPE: US thyroid st tissue head/neck DATE OF EXAM: 02/01/2020 COMPARISON: NONE CLINICAL HISTORY: E04.1 Thyroid Nodule. Hashimotos thyroid nodule GLAND SIZE: Right Lobe: 5.6 x 1.7 x 1.5 cm Overall Parenchyma: heterogenous Left Lobe: 5.6 x 1.5 x 2.1 cm Overall Parenchyma: heterogeneous Isthmus Thickness: .26 cm 06/27/2019 NODULES RIGHT: # of nodules measured on right: 1 1. .6 X .3 x .4 cm cystic nodule at the lower pole with well-defined margins; . This nodule is wid er than tall and shows no intranodular vascularity. Prior size: .5 x .5 x .3 cm LEFT: # of nodules measured on left: 1 1. .5 X .3 x .4 cm cystic nodule at the mid pole with well-defined margins; . This nodule is wider than tall and shows no intranodular vascularity. Prior size: .6 x .3 x .4 cm ISTHMUS: # of nodules measured in the isthmus: 0 Bilateral neck scanned, no evidence of lymphadenopathy. IMPRESSION: 1. Thyromegaly correlate for thyroiditis. 2. Stable bilateral subcentimeter pulmonary nodules.
== END | disposition home or self-care (01) ==
LOC: RADUSWWP 15:24
PROVIDERS: ATTEND Family Medicine
DX: E01.0 Iodine-deficiency related diffuse (endemic) goiter (principal)
CPT/HCPCS: 76536

== ENCOUNTER 2020-06-18 06:47 | Observation (INO) | payer OTHER ==
[2020-06-18] MEDS ORDERED: ACETAMINOPHEN TAB 500 MG TAB PO STA (07:13)
[2020-06-18 07:36] LABS: Basophils % (A) 1 %; Eosinophils # (A) 0.2 k/uL (0-0.7); Eosinophils % (A) 2 %; HCT 39.4 % (34.0-46.0); Lymphocytes # (A) 1.5 k/uL (1.0-4.8); Lymphocytes % (A) 21 %; MCH 31.1 pg (25.0-35.0); MCHC 35.5 g/dL (31.0-37.0); MCV 87.6 fL (80.0-100.0); Mean Platelet Volume 6.7; Monocytes # (A) 0.5 k/uL (0-1.0); Monocytes % (A) 6 %; Neutrophils # (A) 4.9 k/uL (1.3-7.7); Neutrophils % (A) 68 %; Platelet Count 182 k/uL (150-450); WBC 7.3 k/uL (3.8-10.6)
[2020-06-18 07:52] LABS: ALT 10 U/L (4-34); AST 19 U/L (14-36); African American GFR (CKD) >90 (>60 ml/min/1.73 sqM); Albumin 4.2 g/dL (3.5-5.0); Alkaline Phosphatase 62 U/L (38-126); Anion Gap 5 mmol/L; Appearance,Urine Bloody (Clear); Blood Urea Nitrogen 11 mg/dL (7-17); Carbon Dioxide 26 mmol/L (22-30); Chloride 106 mmol/L (98-107); Color,Urine Red; Glucose 93 mg/dL (74-99); Non-African American GFR(CKD) >90 (>60 ml/min/1.73 sqM); Potassium 3.6 mmol/L (3.5-5.1); Sodium 137 mmol/L (137-145); Total Bilirubin 0.6 mg/dL (0.2-1.3)
[2020-06-18 07:55] LABS: Bacteria,Urine Rare /hpf; Mucus,Urine Many /hpf; RBC,Urine >182 /hpf (0-5); Squamous Epithelial Cell,Urine 25 /hpf (0-4); WBC,Urine 21 /hpf (0-5)
--- NOTE | 2020-06-18 07:55 | ED ---
General Adult HPI - General Chief complaint: Vaginal Bleeding Stated complaint: Vaginal Bleeding, 9 wks Time Seen by Provider: 06/18/20 06:54 Source: patient, RN notes reviewed Mode of arrival: ambulatory Limitations: no limitations - History of Present Illness Initial comments: 34-year-old female currently 9 weeks with an LMP April 15 2020 presents to the emergency room for a chief complaint of vaginal bleeding. Patient reports she has had vaginal spotting starting yesterday. She did call her [facility] who scheduled her for an ultrasound today. However patient reports overnight the bleeding has increased and she has passed small clots. Denies passing tissue. She states she now has cramping in her abdomen rated at an 8 out of 10. Patient is concerned because she had a miscarriage last year. Patient denies any lightheadedness. Denies any chest pain or shortness of breath. - Related Data Home Medications Medication Instructions Recorded Confirmed No Known Home Medications 06/18/20 06/18/20 Allergies Allergy/AdvReac Type Severity Reaction Status Date / Time Penicillins AdvReac Vomiting Verified 06/18/20 08:16 Review of Systems ROS Statement: Those systems with pertinent positive or pertinent negative responses have been documented in the HPI. ROS Other: All systems not noted in ROS Statement are negative. Past Medical History Past Medical History: Thyroid Disorder Additional Past Medical History / Comment(s): hashimotos, History of Any Multi-Drug Resistant Organisms: None Reported Past Surgical History: Orthopedic Surgery, Tonsillectomy Additional Past Surgical History / Comment(s): knee Past Psychological History: Anxiety Smoking Status: Never smoker Past Alcohol Use History: Rare Past Drug Use History: None Reported General Exam Limitations: no limitations General appearance: alert, in no apparent distress Head exam: Present: atraumatic, normocephalic, normal inspection Eye exam: Present: normal appearance ENT exam: Present: normal exam, mucous membranes moist Neck exam: Present: normal inspection, full ROM Respiratory exam: Present: normal lung sounds bilaterally. Absent: respiratory distress, wheezes, rales, rhonchi, stridor Cardiovascular Exam: Present: regular rate, normal rhythm GI/Abdominal exam: Present: soft, tenderness (Minimal tenderness noted on the suprapubic area), normal bowel sounds. Absent: distended, guarding, rebound, rigid External exam: Present: normal external exam. Absent: erythema, swelling, lesions, lacerations, ecchymosis Speculum exam: Present: vaginal bleeding (Minimal vaginal bleeding, small clot removed). Absent: normal speculum exam, erythema, vaginal discharge, cervical discharge, foreign body, tissue, laceration Neurological exam: Present: alert Course Vital Signs 06/18/20 06/18/20 06:47 08:46 Temperature 98.4 F Pulse Rate 91 88 Respiratory 22 18 Rate Blood Pressure 116/80 106/70 O2 Sat by Pulse 99 98 Oximetry Medical Decision Making - Medical Decision Making Vitals are stable. HPI as documented. Patient is noted to be a female 9 weeks with history of miscarriage last year. Physical exam pertinent for mild vaginal bleeding with clots noted. Patient does not recall passing any tissue. CBC CMP unremarkable. HCG is found to be 11,400. Ultrasound however does reveal no intrauterine . There is a 2.4 cm mixed lesion of the right ovary which is a probable corpus luteal cyst. There is no free fluid. Patient's pain was initially an 8. After Tylenol her pain as a 4. I did speak with Dr. Pearl about this patient. Given patient is still having pain in there is no evidence of an IUP with a high beta hCG he would like to keep her in observation on the labor and delivery floor. He is recommending lactated Ringer's and keeping her nothing by mouth. I did speak with administrative charge and they are able to place patient on labor and delivery. Dr. Pearl does not want any pain medication ordered, wants the nurse to notify him if she is having severe pain. - Lab Data Result diagrams: 06/18/20 07:23 06/18/20 07:23 Lab Results 06/18/20 06/18/20 06/18/20 Range/Units 07:23 07:23 07:23 WBC 7.3 (3.8-10.6) k/uL RBC 4.50 (3.80-5.40) m/uL Hgb 14.0 (11.4-16.0) gm/dL Hct 39.4 (34.0-46.0) % MCV 87.6 (80.0-100.0) fL MCH 31.1 (25.0-35.0) pg MCHC 35.5 (31.0-37.0) g/dL RDW 12.0 (11.5-15.5) % Plt Count 182 (150-450) k/uL MPV 6.7 Neutrophils % 68 % Lymphocytes % 21 % Monocytes % 6 % Eosinophils % 2 % Basophils % 1 % Neutrophils # 4.9 (1.3-7.7) k/uL Lymphocytes # 1.5 (1.0-4.8) k/uL Monocytes # 0.5 (0-1.0) k/uL Eosinophils # 0.2 (0-0.7) k/uL Basophils # 0.0 (0-0.2) k/uL Sodium 137 (137-145) mmol/L Potassium 3.6 (3.5-5.1) mmol/L Chloride 106 (98-107) mmol/L Carbon Dioxide 26 (22-30) mmol/L Anion Gap 5 mmol/L BUN 11 (7-17) mg/dL Creatinine 0.66 (0.52-1.04) mg/dL Est GFR (CKD-EPI)AfAm >90 (>60 ml/min/1.73 sqM) Est GFR (CKD-EPI)NonAf >90 (>60 ml/min/1.73 sqM) Glucose 93 (74-99) mg/dL Calcium 9.0 (8.4-10.2) mg/dL Total Bilirubin 0.6 (0.2-1.3) mg/dL AST 19 (14-36) U/L ALT 10 (4-34) U/L Alkaline Phosphatase 62 (38-126) U/L Total Protein 7.0 (6.3-8.2) g/dL Albumin 4.2 (3.5-5.0) g/dL HCG, Quant 48613.9 mIU/mL Urine Color Red Urine Appearance Bloody H (Clear) Urine RBC >182 H (0-5) /hpf Urine WBC 21 H (0-5) /hpf Ur Squamous Epith Cells 25 H (0-4) /hpf Urine Bacteria Rare H (None) /hpf Urine Mucus Many H (None) /hpf Blood Type Blood Type Recheck Bld Type Recheck Status 06/18/20 Range/Units 07:23 WBC (3.8-10.6) k/uL RBC (3.80-5.40) m/uL Hgb (11.4-16.0) gm/dL Hct (34.0-46.0) % MCV (80.0-100.0) fL MCH (25.0-35.0) pg MCHC (31.0-37.0) g/dL RDW (11.5-15.5) % Plt Count (150-450) k/uL MPV Neutrophils % % Lymphocytes % % Monocytes % % Eosinophils % % Basophils % % Neutrophils # (1.3-7.7) k/uL Lymphocytes # (1.0-4.8) k/uL Monocytes # (0-1.0) k/uL Eosinophils # (0-0.7) k/uL Basophils # (0-0.2) k/uL Sodium (137-145) mmol/L Potassium (3.5-5.1) mmol/L Chloride (98-107) mmol/L Carbon Dioxide (22-30) mmol/L Anion Gap mmol/L BUN (7-17) mg/dL Creatinine (0.52-1.04) mg/dL Est GFR (CKD-EPI)AfAm (>60 ml/min/1.73 sqM) Est GFR (CKD-EPI)NonAf (>60 ml/min/1.73 sqM) Glucose (74-99) mg/dL Calcium (8.4-10.2) mg/dL Total Bilirubin (0.2-1.3) mg/dL AST (14-36) U/L ALT (4-34) U/L Alkaline Phosphatase (38-126) U/L Total Protein (6.3-8.2) g/dL Albumin (3.5-5.0) g/dL HCG, Quant mIU/mL Urine Color Urine Appearance (Clear) Urine RBC (0-5) /hpf Urine WBC (0-5) /hpf Ur Squamous Epith Cells (0-4) /hpf Urine Bacteria (None) /hpf Urine Mucus (None) /hpf Blood Type O Positive Blood Type Recheck O Pos Bld Type Recheck Status No Disposition Clinical Impression: Vaginal bleeding, Elevated serum hCG, Abdominal pain Disposition: ADMITTED IP TO THIS HOSP Is patient prescribed a controlled substance at d/c from ED?: No Referrals: Mirela Rivas MD [Primary Care Provider] - 1-2 days Time of Disposition: 09:13
[2020-06-18 08:09] LABS: HCG,Quantitative Serum 11498.9 mIU/mL
--- NOTE | 2020-06-18 08:12 | US ---
EXAMINATION TYPE: Transabdominal DATE OF EXAM: 06/18/2020 7:55 AM COMPARISON: NONE CLINICAL HISTORY: pain. bleeding with EXAM PERFORMED: Transvaginal (TV) and Transabdominal (TA) EXAM MEASUREMENTS: GESTATIONAL AGE / DATING Physician Established: Not yet established Dates by LMP: 04/15/2020 (9 weeks/1 days) EDC: 01/20/2021 Dates by First Scan: No previous this is first scan Dates by Current Scan for: No IUP seen at this time MATERNAL ANATOMY Uterus: 13.0 x 4.9 x 7.1 cm Right Ovary: 4.3 x 1.8 x 1.9 cm Left Ovary: 2.3 x 1.1 x 2.2 cm Post CDS / Adnexa: wnl Presence of free fluid: none Presence of corpus luteal cyst: mixed lesion right ovary measures 2.4 x 1.8 x 1.7 cm, probable corpus luteal. GESTATION / SURVEY No evidence of an IUP, the endometrium is thickened and heterogeneous in the VICK. Date of LMP: 04/15/2020 Beta HcG (if available): Not available at time of exam. IMPRESSION: 1. No intrauterine identified. Correlation with beta-hCG is recommended. Follow-up can be p erformed. Other etiologies including early or ectopic should be considered.
[2020-06-18] MEDS ORDERED: NALOXONE 0.4 MG/ML 1 ML VIAL IV PRN (09:14)
[2020-06-18] MEDS ORDERED: LACTATED RINGERS 1,000 ML IV SCH (09:15)
--- NOTE | 2020-06-18 13:05 | P.HPOB ---
History of Present Illness H&P Date: 06/18/20 Chief Complaint: bleeding and cramping. This patient is a pleasant 34-year-old gravida4 para 2 female estimated last menstrual cycle placing her at about 9 weeks gestation who presents to the emergency department with complaints of lower abdominal pain and bleeding. Patient had a transvaginal ultrasound which she reports that is there is no IUP however there is some heterogeneous area of the lower uterine segment. Patient also has what appears to be a corpus luteal cyst on the right side. Beta-hCG was 11,496. Patient states that she had some spotting overnight and a little heavier this morning but does not report passing any tissue. Patient is having some pain more localized to the right but was relieved with Tylenol. Review of Systems Constitutional: Reports as per HPI, Denies chills, Denies fever Genitourinary: Reports as per HPI, Reports abnormal vaginal bleeding, Reports Past Medical History Past Medical History: Thyroid Disorder Additional Past Medical History / Comment(s): hashimotos, History of Any Multi-Drug Resistant Organisms: None Reported Past Surgical History: Orthopedic Surgery, Tonsillectomy Additional Past Surgical History / Comment(s): knee Past Psychological History: Anxiety Smoking Status: Never smoker Past Alcohol Use History: Rare Past Drug Use History: None Reported Medications and Allergies Home Medications Medication Instructions Recorded Confirmed Type No Known Home Medications 06/18/20 06/18/20 History Allergies Allergy/AdvReac Type Severity Reaction Status Date / Time Penicillins AdvReac Vomiting Verified 06/18/20 08:16 Exam Vital Signs Temp Pulse Resp BP Pulse Ox 06/18/20 08:46 88 18 106/70 98 06/18/20 06:47 98.4 F 91 22 116/80 99 Intake and Output 06/17/20 06/18/20 06/18/20 22:59 06:59 14:59 Other: Weight 51.71 kg - OBG Physical Exam Abdomen: bowel sounds normal, no diffuse tenderness, no bruit present, no guarding noted, no hepatomegaly, no splenomegaly, no mass Vulva: both: normal Cervix: no lesion (bright red bleeding), no discharge Results Result Diagrams: 06/18/20 07:23 06/18/20 07:23 Abnormal Lab Results - Last 24 Hours (Table) 06/18/20 Range/Units 07:23 Urine Appearance Bloody H (Clear) Urine RBC >182 H (0-5) /hpf Urine WBC 21 H (0-5) /hpf Ur Squamous Epith Cells 25 H (0-4) /hpf Urine Bacteria Rare H (None) /hpf Urine Mucus Many H (None) /hpf Microbiology - Last 24 Hours (Table) 06/18/20 07:23 Urine Culture - Preliminary Urine,Voided Assessment and Plan Assessment: this is a pleasant 34-year-old 4 para 2 female estimated gestational age 9 weeks with vaginal bleeding and lower pelvic pain. I did review the films with the radiologist and at this time this does not appear to be an ectopic p regnancy but more likely an incomplete because there is copious amount of tissue in the uterus. I discussed this with the patient and plan at this time is to proceed with suction D&C for treatment. She understands there is still a possibility this is an ectopic which could require further surgery or treatment. Did discuss the surgery with the patient including risks of infection, bleeding, possible uterine perforation. All the patient's questions are answered written consent is obtained. (1) First trimester bleeding Current Visit: Yes Status: Acute Code(s): O20.9 - HEMORRHAGE IN EARLY , UNSPECIFIED SNOMED Code(s): 14538610
[2020-06-18] MEDS: LACTATED RINGERS 1,000 ML IV SCH (13:30)
[2020-06-18] MEDS ORDERED: MIDAZOLAM 2 MG/2 ML VIAL ONE (20:28)
[2020-06-18] MEDS ORDERED: LACTATED RINGERS 1,000 ML IV ONE (20:28)
[2020-06-18] MEDS ORDERED: KETOROLAC 15 MG/ML 1 ML VIAL ONE (20:28)
[2020-06-18] MEDS ORDERED: PROPOFOL 10 MG/ML 20 ML VIAL IV ONE (20:28)
[2020-06-18] MEDS ORDERED: LIDOCAINE 1% INJ 10MG/ML (20 ML MDV) ONE (20:28)
[2020-06-18] MEDS ORDERED: Acetaminophen-Codeine 300-30mg TAB PO PRN (21:03)
[2020-06-18] MEDS ORDERED: IBUPROFEN 600 MG TAB PO PRN (21:03)
--- NOTE | 2020-06-18 21:10 | P.OP ---
Date of Procedure: 06/18/20 Preoperative Diagnosis: Incomplete Postoperative Diagnosis: Same Procedure(s) Performed: Suction D&C Anesthesia: MAC Surgeon: Brett Pearl Estimated Blood Loss (ml): 25 Urine output (ml): 15 Pathology: other (Uterine contents) Condition: stable Disposition: PACU Indications for Procedure: Please see dictated H&P for intimate details of this patient's admission. Brief summary this pleasant 34-year-old 4 para 2 female approximately 9 weeks gestation admitted to the emergency department with complaints of pain and bleeding. Patient's beta hCG was 11,500 and ultrasound initially indicated there was no intrauterine . Review of the films and discussion with the radiologist there was a lot of debris in the uterine cavity consistent with a more likely with an incomplete . Patient is having bleeding and pain and we elected proceed with suction D&C for treatment. Patient does understand this procedure and risks and risks of infection, bleeding, possible uterine perforation. All the patient's questions are answered written consent is obtained. Operative Findings: This patient had uterine contents consistent with products of conception Description of Procedure: This patient is taken to the operating room where she is laid in the supine position. She subsequently undergoes general anesthesia without incident. With adequate level of anesthesia she is placed in dorsal lithotomy position. She has a vaginal perineal prep and drape. Examination under anesthesia shows a retroverted uterus. Bladder is drained at this time for routine cc of clear urine. Weighted speculum was placed in the posterior vagina. Anterior lip of the cervix is grabbed with an Allis clamp. The cervix is gently dilated to allow a 8 curved suction curette easily and the uterine cavity. Suction is applied and generous amount of tissue was removed. Multiple passes are made to no further tissue was noted. A gentle but thorough 4 quadrant curettage is done at this time as well. With this done the procedure is ended. The Allis clamp and weighted speculum was removed. All counts are correct 3. There are no complications. Patient is awakened from anesthesia and taken recovery room satisfactory condition.
[2020-06-18 21:39] LABS: Basophils % (A) 1 %; Eosinophils # (A) 0.2 k/uL (0-0.7); Eosinophils % (A) 2 %; HCT 33.5 % (34.0-46.0); HGB 11.6 gm/dL (11.4-16.0); Lymphocytes # (A) 1.7 k/uL (1.0-4.8); Lymphocytes % (A) 23 %; MCH 30.8 pg (25.0-35.0); MCHC 34.8 g/dL (31.0-37.0); MCV 88.5 fL (80.0-100.0); Monocytes # (A) 0.5 k/uL (0-1.0); Monocytes % (A) 7 %; Neutrophils # (A) 4.9 k/uL (1.3-7.7); Neutrophils % (A) 66 %; Platelet Count 157 k/uL (150-450); RBC 3.79 m/uL (3.80-5.40); RDW 12.2 % (11.5-15.5); WBC 7.4 k/uL (3.8-10.6)
[2020-06-18] MEDS: ACETAMINOPHEN TAB 325 MG TAB PO PRN (22:11)
[2020-06-19] MEDS: LACTATED RINGERS 1,000 ML IV SCH ×2 (04:29→06:28)
--- NOTE | 2020-06-19 06:59 | P.PN ---
Progress Note - Text Progress Note Date: 06/19/20 Patient rested overnight and was sleeping. She states that since her D&C the pain has almost completely subsided. Findings at the time of her D&C showed a generous amount of tissue in my suspicion for an ectopic at this time is very low. Patient appears to be stable for discharge home. Discharge home follow up with me and repeat beta hCG on Tuesday.
--- NOTE | 2020-06-19 07:02 | P.DS ---
Providers Date of admission: 06/18/20 08:48 Expected date of discharge: 06/19/20 Attending physician: Brett Pearl Primary care physician: Mirela Rivas - Discharge Diagnosis(es) (1) First trimester bleeding Current Visit: Yes Status: Acute Hospital Course: Please see dictated H&P for intimate details of this patient's admission. Brief summary is a pleasant 34-year-old 4 para 2 female admitted through the emergency department bleeding abdominal pain. Due to delays in the operating room patient underwent a D&C but was much later in the day. Findings that time showed a generous amount of tissue consistent with an incomplete . Patient did well after D&C's felt be stable for discharge home follow up with me as an outpatient for serial hCGs. Procedures: Suction D&C Patient Condition at Discharge: Good Plan - Discharge Summary New Discharge Prescriptions: New Ibuprofen [Motrin] 600 mg PO Q6HR PRN #30 tab PRN Reason: Pain Discharge Medication List Ibuprofen [Motrin] 600 mg PO Q6HR PRN #30 tab 06/19/20 [Rx] Follow up Appointment(s)/Referral(s): Brett Pearl MD [STAFF PHYSICIAN] - 06/23/20 (Please see me Tuesday afternoon and your beta hCG blood draw Tuesday morning) Patient Instructions/Handouts: Miscarriage (DC), Dilation and Curettage (DC) Discharge Disposition: HOME SELF-CARE
[2020-06-19] MEDS: ACETAMINOPHEN TAB 325 MG TAB PO PRN (07:44)
[2020-06-19 09:20] VITALS: BP 109/69; PULSE 83; RESP 16; TEMP 97.8
[2020-06-19] MEDS ORDERED: ACETAMINOPHEN TAB 325 MG TAB PO PRN (21:04)
== END 2020-06-19 08:30 | disposition home or self-care (01) ==
LOC: EC 06:47 → 4FBP 08:48
PROVIDERS: ADMIT Obstetrics & Gynecology; ATTEND Obstetrics & Gynecology
DX: O03.4 Incomplete spontaneous abortion without complication (principal); E06.3 Autoimmune thyroiditis; F41.9 Anxiety disorder, unspecified; N83.10 Corpus luteum cyst of ovary, unspecified side; Z3A.09 9 weeks gestation of pregnancy
CPT/HCPCS: 59812; 99285; 36415; 86900; 86901; 88305; 80053; 85025; 81001; 84702 ×2; 87086; 76801; 76817; G0378 ×2; J2250; J2001; J1885; J2704

== ENCOUNTER → 2020-06-23 | Outpatient (CLI) | payer OTHER | END | disposition home or self-care (01) | LOC: LABWHC1 08:50 | PROVIDERS: ATTEND Obstetrics & Gynecology | DX: O03.9 Complete or unspecified spontaneous abortion without complication (principal) | CPT/HCPCS: 36415; 84702 ==

== ENCOUNTER → 2020-08-26 | Outpatient (CLI) | payer OTHER ==
[2020-08-26 15:14] LABS: HCT 38.6 % (37.2-46.3); MCH 29.7 pg (27.0-32.0); MCHC 33.7 g/dL (32.0-37.0); MCV 88.3 fL (80.0-97.0); Mean Platelet Volume 10.4 fL (9.5-12.2); Platelet Count 207 X 10*3/uL (140-440); RBC 4.37 X 10*6/uL (4.10-5.20); RDW 12.2 % (11.5-14.5); WBC 8.76 X 10*3/uL (4.50-10.00)
[2020-08-26 16:26] LABS: African American GFR (CKD) 129.2 (60.0-200.0); Non-African American GFR(CKD) 111.5 (60.0-200.0)
[2020-08-26 18:53] LABS: Hepatitis B Surface Antigen Non-Reactive (Non-Reactive)
[2020-08-27 05:49] LABS: HIV 2 AB Non-Reactive (Non-Reactive); HIV AB P24 Non-Reactive (Non-Reactive); HIV P24 AG Non-Reactive (Non-Reactive)
== END | disposition home or self-care (01) ==
LOC: LABWHC1 09:56
PROVIDERS: ATTEND Obstetrics & Gynecology
DX: Z34.81 Encounter for supervision of other normal pregnancy, first trimester (principal)
CPT/HCPCS: 36415; 82565; 82947; 85027; 86762; 86780; 86850; 86900; 86901; 87340; 87390

== ENCOUNTER → 2020-09-04 | Outpatient (CLI) | payer OTHER ==
--- NOTE | 2020-09-04 15:47 | US ---
EXAMINATION TYPE: Transabdominal DATE OF EXAM: 09/04/2020 3:32 PM COMPARISON: NONE CLINICAL HISTORY: Z36 Confirm Dates. dates, history of miscarriages. No complications this EXAM PERFORMED: Transabdominal (TA) EXAM MEASUREMENTS: GESTATIONAL AGE / DATING Physician Established: Not yet established Dates by LMP: (7 weeks/6 days) EDC: 04/17/2021 Dates by First Scan: No previous this is first scan Dates by Current Scan for: (8 weeks/6 days) EDC: 04/10/2021 MATERNAL ANATOMY Uterus: 9.7 x 6.7 x 5.9 cm Right Ovary: 5.2 x 2.6 x 4.2 cm Left Ovary: 3.0 x 1.6 x 2.2 cm Post CDS / Adnexa: no free fluid Presence of free fluid: no Presence of corpus luteal cyst: right cystic lesions. Largest simple cystic lesion = 3.9 x 2.3 x 3.4 cm Presence of subchorionic bleed: no GESTATION / SURVEY CRL: 2.2 cm (8 weeks/6 days) MSD: seen, not measured Yolk Sac (normal less than 6mm): 3.2 mm Heart Rate: 170 bpm Rhythm: Normal IUP: Viable IUP Date of LMP: 07/11/2020, [id number] Beta HcG (if available): Not available at this time IMPRESSION: Single live IUP measuring 8 weeks 6 days. Right ovary contained two simple cystic lesions, largest = 3.9 x 2.3 x 3.4 cm
== END | disposition home or self-care (01) ==
LOC: RADUSWWP 15:15
PROVIDERS: ATTEND Obstetrics & Gynecology
DX: O34.81 Maternal care for other abnormalities of pelvic organs, first trimester (principal); N83.201 Unspecified ovarian cyst, right side; Z3A.08 8 weeks gestation of pregnancy
CPT/HCPCS: 76801

== ENCOUNTER → 2021-01-19 | Outpatient (CLI) | payer OTHER ==
--- NOTE | 2021-01-19 10:46 | US ---
EXAMINATION TYPE: US thyroid st tissue head/neck DATE OF EXAM: 01/19/2021 COMPARISON: NONE CLINICAL HISTORY: E06.3 AUTOIMMUNE THYROIDITIS. Em's Thyroiditis GLAND SIZE: Right Lobe: 6.0 x 1.1 x 2.0 cm, enlarged Overall Parenchyma: heterogenous Left Lobe: 6.0 x 1.5 x 1.9 cm, enlarged Overall Parenchyma: heterogeneous Isthmus Thickness: 0.3 cm NODULES RIGHT: # of nodules measured on right: 1 1. 0.6 X 0.4 x 0.6 cm, lower mid, cystic or almost completely cystic, anechoic nodule, which is wid er than tall, with smooth margins, without echogenic foci. Prior size: 0.6 x 0.3 x 0.4 cm LEFT: # of nodules measured on left: 1 1. 0.5 X 0.3 x 0.5 cm, mid , cystic or almost completely cystic, anechoic nodule, which is wider th an tall, with smooth margins, without echogenic foci. Prior size: 0.5 x 0.3 x 0.4 cm ISTHMUS: # of nodules measured in the isthmus: 0 Bilateral neck scanned, no evidence of lymphadenopathy. IMPRESSION: 1. Stable subcentimeter thyroid nodules. 2017 ACR TI-RADS LEVEL: TR-RADS 1 - BENIGN: No FNA *Highest TI-RADS level nodule reported
== END | disposition home or self-care (01) ==
LOC: RADUSWWP 09:08
PROVIDERS: ATTEND Family Medicine
DX: E04.2 Nontoxic multinodular goiter (principal)
CPT/HCPCS: 76536

== ENCOUNTER 2021-03-16 14:08 | Outpatient (CLI) | payer OTHER ==
[2021-03-16 16:31] VITALS: PULSE 88; RESP 16; TEMP 98.4
--- NOTE | 2021-03-17 06:30 | P.MSEPDOC ---
Presenting Problems - Arrival Data Date of Arrival on Unit: 03/16/21 Time of Arrival on Unit: 14:08 Mode of Transport: Ambulatory - Complaint OB-Reason for Admission/Chief Complaint: Possible Onset of Labor Comment: pt presents to triage after calling Dr Wheeler office. States has had. contractions worsening past couple weeks but got even worse this past weekend. states. now feels pressure in "vagina and butt" and has been timing contractions 4-5 min apart. today Medical History - Information : 5 Para: 2 Term: 1 : 1 Abortions: Spontaneous or Elective: 2 Number of Living Children: 2 - Gestational Age Gestational Age by FRANKY (wks/days): 36 Weeks and 3 Days - History Complications: Prior Review of Systems - Review of Systems Constitutional: No problems Breast: No problems ENT: No problems Cardiovascular: No problems Respiratory: No problems Gastrointestinal: No problems Genitourinary: No problems Musculoskeletal: No problems Neurological: No problems Skin: No problems Vital Signs - Temperature Temperature: 98.4 F Temperature Source: Temporal Artery Scan - Pulse Right Pulse Rate: 88 Pulse Assessment Method: Automatic Cuff - Respirations Respiratory Rate: 16 Oxygen Delivery Method: Room Air O2 Sat by Pulse Oximetry: 99 Medical Screen Scoring - Cervical Exam Dilation (cm): 0 Effacement (%): 50 - Uterine Contractions Frequency From (mins): 2 Frequency To (mins): 6 Duration From (seconds): 60 Duration To (seconds): 90 Intensity: Mild Resting: Soft to palpation - Assessment - Baby A Baseline FHR: 125 Heart Rate - NICHD Category: Category I (Normal) NST: Reactive Physician Notification - Physician Notified Physician Notified Date: 03/16/21 Physician Notified Time: 15:00 Physician: Dr Pearl New Order Received: Yes - Notification Comment Comment: Discharge order received Maternal Triage Index - Maternal Triage Index Presenting for scheduled procedure w/no complaint: No - Stat/Priority 1 Stat Priority 1: No - Urgent/Priority 2 Urgent Priority 2: No - Prompt/Priority 3 Prompt Priority 3: Yes Criteria Met for Priority 3: Dr Pearl updated pt here. reason for visit. VSS. reactive nst. cat 1 fht. regular contractions. cervix closed. appt with him . Order to discharge home. with instructions to keep appt Disposition - Disposition OB Disposition: Discharge to home Discharge Date: 03/16/21 Discharge Time: 15:05 I agree with the RN Medical Screening Exam: Yes Case reviewed; plan agreed upon as documented in EMR&OBIX.: Yes Diagnosis: FALSE LABOR BEFORE 37 COMPLETED WEEKS OF GEST, THIRD TRI
== END 2021-03-16 15:05 | disposition home or self-care (01) ==
LOC: FBPOP 14:08
PROVIDERS: ATTEND Obstetrics & Gynecology
DX: O47.03 False labor before 37 completed weeks of gestation, third trimester (principal); Z3A.36 36 weeks gestation of pregnancy; Z88.0 Allergy status to penicillin
CPT/HCPCS: 59025; G0463; 99213

== ENCOUNTER 2021-03-19 09:35 | Outpatient (CLI) | payer OTHER ==
[2021-03-19 10:24] LABS: Basophils % (A) 0 %; Eosinophils # (A) 0.1 k/uL (0-0.7); Eosinophils % (A) 1 %; HCT 29.5 % (34.0-46.0); HGB 9.6 gm/dL (11.4-16.0); Hypochromasia Slight; Lymphocytes # (A) 1.6 k/uL (1.0-4.8); Lymphocytes % (A) 18 %; MCH 26.5 pg (25.0-35.0); MCHC 32.5 g/dL (31.0-37.0); MCV 81.7 fL (80.0-100.0); Mean Platelet Volume 8.3; Monocytes # (A) 0.5 k/uL (0-1.0); Monocytes % (A) 5 %; Neutrophils # (A) 6.8 k/uL (1.3-7.7); Neutrophils % (A) 73 %; Platelet Count 209 k/uL (150-450); Poikilocytosis Slight; RBC 3.61 m/uL (3.80-5.40); RDW 14.2 % (11.5-15.5); WBC 9.2 k/uL (3.8-10.6)
[2021-03-19 10:44] LABS: ALT 12 U/L (4-34); AST 24 U/L (14-36); African American GFR (CKD) >90 (>60 ml/min/1.73 sqM); Blood Urea Nitrogen 7 mg/dL (7-17); LDH 425 U/L (313-618); Non-African American GFR(CKD) >90 (>60 ml/min/1.73 sqM); Uric Acid 4.2 mg/dL (3.7-7.4)
[2021-03-19 10:47] LABS: Creatinine,Urine Random 44.5 mg/dL; Protein/Creatinine Ratio,Urine 0.315
[2021-03-19 12:57] LABS: Appearance,Urine Cloudy (Clear); Bacteria,Urine Rare /hpf; Bilirubin,Urine Negative (Negative); Blood,Urine Negative (Negative); Color,Urine Light Yellow; Glucose,Urine (UA) Negative (Negative); Ketones,Urine Negative (Negative); Leukocyte Esterase,Urine Small (Negative); Mucus,Urine Rare /hpf; Nitrite,Urine Negative (Negative); Protein,Urine Negative (Negative); RBC,Urine 2 /hpf (0-5); Specific Gravity,Urine 1.007 (1.001-1.035); Squamous Epithelial Cell,Urine 14 /hpf (0-4); Urobilinogen,Urine <2.0 mg/dL (<2.0); WBC,Urine 10 /hpf (0-5)
== END 2021-03-19 11:25 | disposition home or self-care (01) ==
LOC: FBPOP 09:35
PROVIDERS: ATTEND Obstetrics & Gynecology
DX: O13.3 Gestational [pregnancy-induced] hypertension without significant proteinuria, third trimester (principal); Z3A.36 36 weeks gestation of pregnancy; Z88.0 Allergy status to penicillin
CPT/HCPCS: 59025; 81001; 82565; 82570; 83615; 84156; 84450; 84460; 84520; 84550; 85025

== ENCOUNTER 2021-03-24 12:05 | Inpatient (IN) | payer OTHER ==
[2021-03-24] MEDS ORDERED: LACTATED RINGERS 1,000 ML IV SCH (12:30)
--- NOTE | 2021-03-24 12:51 | P.HPOB ---
History of Present Illness H&P Date: 03/24/21 Chief Complaint: Hypertension This patient is a pleasant 35-year-old 5 para 2 female estimated date of confinement 04/10/2021 estimated gestational age 37-4/7 weeks gestation who is admitted for my office for evaluation of hypertension. Patient's history is such that she was in the office last week and had a blood pressure is elevated 156/84. Patient was sent to labor and delivery at that time had normal blood pressures and normal preeclampsia labs. Patient returns the office today and blood pressure again is elevated 150/82 and 142/80. I had a long discussion with the patient about current recommendation and treatment of gestational hypertension. Plan is to admit to labor and delivery and rule out preeclampsia. If there is no evidence of preeclampsia we will still proceed with delivery secondary to the diagnosis of gestational hypertension. has been complicated by maternal age and she has had normal genetic evaluation and ultrasounds per maternal- medicine. was also complicated by history of delivery and labor with previous pregnancies and she was on progesterone during this . Review of Systems Genitourinary: Reports Menstruation: Reports amenorrhea Past Medical History Past Medical History: Thyroid Disorder Additional Past Medical History / Comment(s): hashimotos, History of Any Multi-Drug Resistant Organisms: None Reported Past Surgical History: Orthopedic Surgery, Tonsillectomy Additional Past Surgical History / Comment(s): knee Past Anesthesia/Blood Transfusion Reactions: No Reported Reaction Past Psychological History: No Psychological Hx Reported Smoking Status: Never smoker, Unknown if ever smoked Past Alcohol Use History: None Reported Past Drug Use History: None Reported - Past Family History Father Family Medical History: Hypertension Mother Family Medical History: Cancer, Hypertension, Thyroid Disorder Additional Family Medical History / Comment(s): thyroid cancer Medications and Allergies Home Medications Medication Instructions Recorded Confirmed Type Pnv No.95/Ferrous Fum/Folic AC 1 tab PO DAILY 03/16/21 03/19/21 History [ Multivitamin Tablet] Allergies Allergy/AdvReac Type Severity Reaction Status Date / Time Penicillins AdvReac Vomiting Verified 03/19/21 09:40 Exam Intake and Output 03/23/21 03/24/21 03/24/21 22:59 06:59 14:59 Other: Weight 71.668 kg - OBG Physical Exam Abdomen: bowel sounds normal, no diffuse tenderness, no bruit present, no guarding noted, no hepatomegaly, no splenomegaly, no mass Vulva: both: normal Vagina: normal moisture, no discharge Cervix: no lesion (Cervix is 1 cm completely effaced -2 station), no discharge Uterus: enlarged (Fundal height 38 cm) Results blood work shows she is O positive, rubella immune, RPR nonreactive, hepatitis B negative, HIV is nonreactive, Glucola was normal, maternity T 21 was 46 XY, group B strep was negative, anatomy ultrasounds have been normal. Assessment and Plan Assessment: This is a pleasant 35-year-old 5 para 2 female 37-4/7 weeks gestation w ith gestational hypertension. Plan at this time is to check preeclampsia blood work. If preeclampsia blood work is negative and pressures remain normal we'll proceed with delivery tomorrow morning. Otherwise proceed with delivery at this time. I did have a long discussion with the patient about her diagnosis and treatment plan and she understands all of her questions are answered. (1) 37 or more weeks gestation of Current Visit: Yes Status: Acute Code(s): DUG8447 - SNOMED Code(s): 28830819 (2) Gestational hypertension Current Visit: Yes Status: Acute Code(s): O13.9 - GESTATIONAL HTN W/O SIGNIFICANT PROTEINURIA, UNSP TRIMESTER SNOMED Code(s): 26655144 (3) Elderly multigravida Current Visit: Yes Status: Acute Code(s): O09.529 - SUPERVISION OF ELDERLY MULTIGRAVIDA, UNSPECIFIED TRIMESTER SNOMED Code(s): 021005840
[2021-03-24 12:58] LABS: Basophils % (A) 0 %; Eosinophils # (A) 0.1 k/uL (0-0.7); Eosinophils % (A) 1 %; HCT 30.2 % (34.0-46.0); HGB 9.9 gm/dL (11.4-16.0); Hypochromasia Slight; Lymphocytes # (A) 1.6 k/uL (1.0-4.8); Lymphocytes % (A) 19 %; MCH 26.4 pg (25.0-35.0); MCHC 32.8 g/dL (31.0-37.0); MCV 80.5 fL (80.0-100.0); Mean Platelet Volume 8.6; Monocytes # (A) 0.6 k/uL (0-1.0); Monocytes % (A) 7 %; Neutrophils # (A) 6.1 k/uL (1.3-7.7); Neutrophils % (A) 70 %; Platelet Count 218 k/uL (150-450); Poikilocytosis Slight; RBC 3.75 m/uL (3.80-5.40); RDW 14.2 % (11.5-15.5); WBC 8.8 k/uL (3.8-10.6)
[2021-03-24 13:11] LABS: INR 0.8 (<1.2); Prothrombin Time 9.4 sec (9.0-12.0)
[2021-03-24 13:14] LABS: ALT 15 U/L (4-34); AST 26 U/L (14-36); African American GFR (CKD) >90 (>60 ml/min/1.73 sqM); Blood Urea Nitrogen 7 mg/dL (7-17); LDH 462 U/L (313-618); Non-African American GFR(CKD) >90 (>60 ml/min/1.73 sqM); Uric Acid 4.2 mg/dL (3.7-7.4)
[2021-03-24 13:30] LABS: Partial Thromboplastin Time 21.3 sec (22.0-30.0)
[2021-03-24 13:55] LABS: Appearance,Urine Clear (Clear); Bilirubin,Urine Negative (Negative); Blood,Urine Negative (Negative); Color,Urine Yellow; Glucose,Urine (UA) Negative (Negative); Ketones,Urine Negative (Negative); Leukocyte Esterase,Urine Trace (Negative); Mucus,Urine Rare /hpf; Nitrite,Urine Negative (Negative); PH, Urine 6.5 (5.0-8.0); Protein,Urine Negative (Negative); RBC,Urine 1 /hpf (0-5); Specific Gravity,Urine 1.009 (1.001-1.035); Squamous Epithelial Cell,Urine 1 /hpf (0-4); Urobilinogen,Urine <2.0 mg/dL (<2.0); WBC,Urine 2 /hpf (0-5)
[2021-03-24 14:12] LABS: Creatinine,Urine Random 66.4 mg/dL; Protein/Creatinine Ratio,Urine 0.12
[2021-03-25] MEDS ORDERED: OXYTOCIN 30 UNITS/500 ML NS 30 UNIT in SALINE 1 500ML.BAG IV SCH ×2 (05:18→09:45)
[2021-03-25] MEDS ORDERED: OXYTOCIN 10 UNIT/ML 1 ML VIAL IM PRN (05:18)
[2021-03-25] MEDS ORDERED: TERBUTALINE 1 MG/ML VIAL SQ PRN (05:18)
[2021-03-25] MEDS ORDERED: CARBOPROST TROMETHAMINE 250 MCG/ML 1 ML AMP IM PRN (05:18)
[2021-03-25] MEDS ORDERED: LIDOCAINE 0.5% (PF) 5 MG/ML (50 ML SDV) SQ PRN (05:18)
[2021-03-25] MEDS ORDERED: METHYLERGONOVINE 0.2 MG/ML 1 ML AMP IM PRN (05:18)
[2021-03-25] MEDS ORDERED: CITRIC ACID-SODIUM CITRATE 15 ML CUP PO ONE (08:49)
[2021-03-25] MEDS ORDERED: OXYTOCIN 30 UNITS/500 ML NS BAG IV ONE (08:58)
[2021-03-25] MEDS ORDERED: ONDANSETRON 4 MG/2 ML VIAL ONE (08:58)
[2021-03-25] MEDS ORDERED: MORPHINE SULFATE (PF) 0.3 MG/0.3 ML SYR ONE (08:58)
[2021-03-25] MEDS ORDERED: KETOROLAC 15 MG/ML 1 ML VIAL ONE (08:58)
[2021-03-25] MEDS ORDERED: ONDANSETRON 4 MG/2 ML VIAL IVP PRN (09:41)
[2021-03-25] MEDS ORDERED: diphenhydrAMINE 50 MG/ML 1 ML VIAL IVP PRN (09:41)
[2021-03-25] MEDS ORDERED: ZOLPIDEM 5 MG TAB PO PRN (09:41)
[2021-03-25] MEDS ORDERED: diphenhydrAMINE 25 MG CAP PO PRN (09:41)
[2021-03-25] MEDS ORDERED: METOCLOPRAMIDE 5 MG/ML 2 ML VIAL IVP PRN (09:41)
[2021-03-25] MEDS ORDERED: SIMETHICONE 80 MG CHEWABLE PO PRN (09:41)
[2021-03-25] MEDS ORDERED: NALOXONE 0.4 MG/ML 1 ML VIAL IV PRN (09:41)
[2021-03-25] MEDS ORDERED: LANOLIN CREAM 5 GM TUBE TOPICAL PRN (09:41)
--- NOTE | 2021-03-25 12:16 | P.OP ---
Date of Procedure: 03/25/21 Preoperative Diagnosis: #1: 37-5/7 week intrauterine . #2: Gestational hypertension. #3: Elderly multigravida. #4: Now presentation/hand presentation Postoperative Diagnosis: Same Procedure(s) Performed: Primary low transverse section Anesthesia: spinal Surgeon: Brett Pearl Trucker Hand #1: Tammie Gao Estimated Blood Loss (ml): 600 Pathology: other (Placenta) Condition: stable Disposition: floor Indications for Procedure: Please see dictated H&P for intimate details of this patient's admission. Brief summary this is a pleasant 35-year-old 5 para 2 female 37-5/7 weeks who presented yesterday evening with elevated blood pressures and was diagnosed with gestational hypertension. Plan was to proceed with induction this morning. Patient's having regular contractions. She is artificial rupture membranes at 2 cm dilated. There was a very large amount of amniotic fluid noted at this time consistent with polyhydramnios. Labor progresses approximate 2 hours later patient is requesting pain medications and the pelvic examination shows what is appears to be hands and the cervix. I examined the patient and felt the vertex however she had 2 hands presenting which were nonreducible. At this time I recommended proceed immediately with delivery by section. Patient understands this procedure and risks and risks of infection, bleeding, possible injury bowel, bladder, vessels, and/or other organs. All the patient's questions are answered written consent obtained. Operative Findings: This is a vigorous viable male Apgars 8 and 9 delivery time was 0916 hrs. Description of Procedure: This patient has a Polanco catheter placed to straight drain. She subsequently taken to the operating room where she sat up and spinal anesthetic is adminis tered without incident. With an adequate level of anesthesia she has abdominal prep and drape. Scalpels and taken and a Pfannenstiel skin incision is then made. A second scalpel is taken down the fascia and the fascia scored with a knife. Fascial incision extended bilaterally using the Wall scissors. Fascia is then dissected off the rectus muscles sharply. Rectus muscles are the peritoneum was identified and entered sharply. Peritoneal incision extended superior and inferior without difficulty. Bladder blade is then placed. Bladder peritoneum was taken off the lower uterine segment. Scalpels and taken low transverse uterine incision is then made. Using a hemostat I into the uterine cavity bluntly and there is loss of clear fluid. This incision is extended manually. The infant is in a vertex presentation but does have both hands presenting before the head. The 's head is then gently guided through the incision with fundal pressure delivered. Mouth and nares are bulb suctioned. There is a nuchal cord 1 which is reduced. Continued fundal pressure wouldn't deliver the rest this 's body. This is a vigorous viable male infant Apgars 8 and 9 delivery time was 0916 hours. After delivery of the infant the umbilical cord is doubly clamped and cut appears to be trivascular. The placenta is manually extracted intact. Uterus is then externalized and the uterine incision demarcated with Domínguez clamps. Uterine incision then closed using 0 Vicryl running locked fashion 2 layers. Excellent hemostasis is noted. Excess fluid is removed from the abdomen and pelvis. Uterus, tubes, ovaries all appear normal for term gestation. Uterus placed back into the abdomen. The parietal peritoneum was then closed using 0 Vicryl running fashion. Rectus muscles reapproximated in 0 Vicryl interrupted fashion. Fascial incision closed using 0 PDS. Fascial incision is intact and hemostatic. Subcutaneous tissues and closed using a 3-0 Vicryl. Skin is and closed using ehsan. All counts are correct 3. There are no complications. Infant and mother are stable and into the birthing suite.
[2021-03-25] MEDS: KETOROLAC 15 MG/ML 1 ML VIAL IVP SCH ×2 (14:40→20:37)
[2021-03-25] MEDS: LACTATED RINGERS 1,000 ML IV SCH ×2 (14:46→19:27)
[2021-03-26] MEDS: ACETAMINOPHEN TAB 500 MG TAB PO PRN ×4 (00:23→19:33)
[2021-03-26] MEDS: KETOROLAC 15 MG/ML 1 ML VIAL IVP SCH ×2 (02:41→17:55)
[2021-03-26] MEDS: LACTATED RINGERS 1,000 ML IV SCH ×6 (02:48→17:56)
[2021-03-26 04:32] VITALS: RESP 16
--- NOTE | 2021-03-26 06:45 | P.PNOBGPC ---
Subjective - Subjective Patient reports: Reports appetite normal, Reports voiding normally, Reports pain well controlled, Reports ambulating normally : doing well Objective - Vital Signs Latest vital signs: Vital Signs Temp Pulse Resp BP Pulse Ox 03/26/21 04:00 98.3 F 63 16 104/54 98 03/26/21 00:00 98.4 F 62 18 122/66 100 03/25/21 20:00 98.4 F 82 18 144/72 100 03/25/21 14:57 98.1 F 67 16 135/67 03/25/21 11:48 98.1 F 68 16 131/70 03/25/21 11:45 98.1 F 68 16 131/70 98 03/25/21 11:17 67 16 129/73 98 03/25/21 10:47 98 F 72 16 126/78 99 03/25/21 10:32 64 16 121/69 100 03/25/21 10:17 75 16 121/74 98 03/25/21 10:02 70 16 110/64 98 03/25/21 09:47 77 16 105/59 03/25/21 09:41 98 Intake and Output 03/25/21 03/25/21 03/26/21 14:59 22:59 06:59 Intake Total 100 Output Total 50 1625 400 Balance -50 -1625 -300 Intake: Oral 100 Output: Urine 1550 400 Uretheral (Polanco) 600 Emesis 50 75 Other: # Voids 1 1 # Emeses 1 - Exam Lungs: bilateral: normal Chest: Normal S1, Normal S2 Extremities: Present: normal Abdomen: Present: normal appearance, soft. Absent: distention, tenderness Incision: Present: normal, dry, intact Uterus: Present: normal, firm Assessment and Plan Assessment: Patient is resting without complaints. Vital signs are stable and she is afebrile. Uterus is firm non-tender. Incision is intact and dry. My impression is she is having a normal course. Plan is to check a CBC, allow the patient to shower. Encourage ambulation. (1) 37 or more weeks gestation of Current Visit: Yes Status: Acute Code(s): AHP0656 - SNOMED Code(s): 03382375 (2) Gestational hypertension Current Visit: Yes Status: Acute Code(s): O13.9 - GESTATIONAL HTN W/O SIGNIFICANT PROTEINURIA, UNSP TRIMESTER SNOMED Code(s): 66617087 (3) Elderly multigravida Current Visit: Yes Status: Acute Code(s): O09.529 - SUPERVISION OF ELDERLY MULTIGRAVIDA, UNSPECIFIED TRIMESTER SNOMED Code(s): 317937499
[2021-03-26] MEDS: SENNOSIDES-DOCUSATE SODIUM 1 EACH TAB PO PRN ×2 (07:41→19:34)
--- NOTE | 2021-03-26 08:03 | P.PN ---
Progress Note - Text Date: 03/26/2021 Time: 07:07 The patient is status post section Vital signs stable VAS: 0-10 Patient has no complaints of pain. The patient incurred some minimal itching yesterday, this itching is now subsiding. Pain meds to be managed by service.
[2021-03-26 08:11] LABS: Basophils % (A) 0 %; Eosinophils % (A) 0 %; HCT 28.9 % (34.0-46.0); HGB 9.1 gm/dL (11.4-16.0); Hypochromasia Moderate; Lymphocytes # (A) 1.4 k/uL (1.0-4.8); Lymphocytes % (A) 11 %; MCH 25.9 pg (25.0-35.0); MCHC 31.3 g/dL (31.0-37.0); MCV 82.8 fL (80.0-100.0); Mean Platelet Volume 7.9; Monocytes # (A) 0.5 k/uL (0-1.0); Monocytes % (A) 4 %; Neutrophils # (A) 10.2 k/uL (1.3-7.7); Neutrophils % (A) 83 %; Platelet Count 198 k/uL (150-450); Poikilocytosis Slight; RBC 3.49 m/uL (3.80-5.40); RDW 14.6 % (11.5-15.5); WBC 12.4 k/uL (3.8-10.6)
[2021-03-26] MEDS: IBUPROFEN 600 MG TAB PO PRN ×3 (09:48→23:02)
[2021-03-27] MEDS: ACETAMINOPHEN TAB 500 MG TAB PO PRN ×2 (02:17→08:17)
[2021-03-27] MEDS: IBUPROFEN 600 MG TAB PO PRN (05:19)
--- NOTE | 2021-03-27 06:26 | P.PNOBGPC ---
Subjective - Subjective Patient reports: Reports appetite normal, Reports voiding normally, Reports pain well controlled, Reports ambulating normally : doing well Objective - Vital Signs Latest vital signs: Vital Signs Temp Pulse Resp BP Pulse Ox 03/26/21 23:36 98.2 F 58 L 16 110/65 99 03/26/21 16:00 63 16 120/66 99 03/26/21 10:00 100 03/26/21 08:00 98.0 F 71 16 116/70 99 Intake and Output 03/26/21 03/26/21 03/27/21 14:59 22:59 06:59 Other: # Voids 1 1 1 - Exam Lungs: bilateral: normal Chest: Normal S1, Normal S2 Extremities: Present: normal Abdomen: Present: normal appearance, soft. Absent: distention, tenderness Incision: Present: normal, dry, intact Uterus: Present: normal, firm - Labs Labs: Abnormal Lab Results - Last 24 Hours (Table) 03/26/21 Range/Units 07:26 WBC 12.4 H (3.8-10.6) k/uL RBC 3.49 L (3.80-5.40) m/uL Hgb 9.1 L (11.4-16.0) gm/dL Hct 28.9 L (34.0-46.0) % Neutrophils # 10.2 H (1.3-7.7) k/uL Assessment and Plan Assessment: Postoperative day #2. Patient is resting without complaints and wishes to go home. Vital signs are stable and she is afebrile. Uterus is firm nontender and her incision is intact and dry. Hemoglobin was 9.0 which is appropriate from her preoperative value. Patient is ambulating and urinating without difficulty. Plan today is to continue routine postoperative care. Discharge home later today. (1) 37 or more weeks gestation of Current Visit: Yes Status: Acute Code(s): PHG5400 - SNOMED Code(s): 35807824 (2) Gestational hypertension Current Visit: Yes Status: Acute Code(s): O13.9 - GESTATIONAL HTN W/O SIGNIFICANT PROTEINURIA, UNSP TRIMESTER SNOMED Code(s): 29466410 (3) Elderly multigravida Current Visit: Yes Status: Acute Code(s): O09.529 - SUPERVISION OF ELDERLY MULTIGRAVIDA, UNSPECIFIED TRIMESTER SNOMED Code(s): 487680765
--- NOTE | 2021-03-27 06:34 | P.DS ---
Providers Date of admission: 03/24/21 12:05 Expected date of discharge: 03/27/21 Attending physician: Brett Pearl Primary care physician: Stated None - Discharge Diagnosis(es) (1) 37 or more weeks gestation of Current Visit: Yes Status: Acute (2) Gestational hypertension Current Visit: Yes Status: Acute (3) Elderly multigravida Current Visit: Yes Status: Acute Hospital Course: Please see dictated H&P for intimate details of this patient's admission. Brief summary this is a pleasant 35-year-old 5 para 2 female 37-5/7 weeks gestation admitted for delivery secondary to gestational hypertension. Patient's subsequent has induction of labor and goes on to have a primary section for malpresentation (hand presentation). Postoperatively patient does well and on postoperative Day #2 be stable for discharge home follow up with me in 1 week. Procedures: Induction of labor and primary low transverse section Patient Condition at Discharge: Good Plan - Discharge Summary New Discharge Prescriptions: New Ibuprofen [Motrin] 600 mg PO Q6H PRN #40 tab PRN Reason: Pain oxyCODONE HCL [OxyIR] 5 mg PO Q4HR PRN #18 tab PRN Reason: Pain No Action Pnv No.95/Ferrous Fum/Folic AC [ Multivitamin Tablet] 1 tab PO DAILY Discharge Medication List Pnv No.95/Ferrous Fum/Folic AC [ Multivitamin Tablet] 1 tab PO DAILY 03/16/21 [History] Ibuprofen [Motrin] 600 mg PO Q6H PRN #40 tab 03/27/21 [Rx] oxyCODONE HCL [OxyIR] 5 mg PO Q4HR PRN #18 tab 03/27/21 [Rx] Follow up Appointment(s)/Referral(s): Brett Pearl MD [STAFF PHYSICIAN] - 05/05/21 2:15 pm (Please see me for a postoperative incision check on 04-02-2021 at 1:30) Patient Instructions/Handouts: (DC) Activity/Diet/Wound Care/Special Instructions: No strenuous activity or heavy lifting for 6 weeks. No intercourse or anything per vagina for 6 weeks. Please call if any fever, chills, excessive vaginal bleeding, and/or abdominal pain. Discharge Disposition: HOME SELF-CARE
[2021-03-27] MEDS: SENNOSIDES-DOCUSATE SODIUM 1 EACH TAB PO PRN (08:16)
[2021-03-27 08:50] VITALS: BP 142/79; PULSE 68; TEMP 98.3
== END 2021-03-27 10:00 | disposition home or self-care (01) | DRG 788 ==
LOC: 4FBP 12:05
PROVIDERS: ADMIT Obstetrics & Gynecology; ATTEND Obstetrics & Gynecology
PROC: 10D00Z1 Extraction of Products of Conception, Low, Open Approach (ICD-10-PCS; principal; 2021-03-25 08:58)
PROC: 3E033VJ Introduction of Other Hormone into Peripheral Vein, Percutaneous Approach (ICD-10-PCS; principal; 2021-03-25 08:58)
PROC: 10907ZC Drainage of Amniotic Fluid, Therapeutic from Products of Conception, Via Natural or Artificial Opening (ICD-10-PCS; principal; 2021-03-25 08:58)
DX: O13.4 Gestational [pregnancy-induced] hypertension without significant proteinuria, complicating childbirth (principal); O40.3XX0 Polyhydramnios, third trimester, not applicable or unspecified; O64.4XX0 Obstructed labor due to shoulder presentation, not applicable or unspecified; O69.81X0 Labor and delivery complicated by cord around neck, without compression, not applicable or unspecified; Z37.0 Single live birth; Z3A.37 37 weeks gestation of pregnancy; O99.284 Endocrine, nutritional and metabolic diseases complicating childbirth; E06.3 Autoimmune thyroiditis; Z79.899 Other long term (current) drug therapy; Z87.51 Personal history of pre-term labor; Z90.89 Acquired absence of other organs; Z87.39 Personal history of other diseases of the musculoskeletal system and connective tissue; Z98.890 Other specified postprocedural states; Z80.8 Family history of malignant neoplasm of other organs or systems; Z82.49 Family history of ischemic heart disease and other diseases of the circulatory system
CPT/HCPCS: 81001; 82565; 82570; 83615; 84156; 84450; 84460; 84520; 84550; 85025; 85610; 85730; 86850; 86900; 86901; 88307

== ENCOUNTER → 2022-03-30 | Outpatient (CLI) | payer BC, OTHER ==
--- NOTE | 2022-03-30 15:52 | US ---
EXAMINATION TYPE: US thyroid st tissue head/neck DATE OF EXAM: 03/30/2022 COMPARISON: 01/19/2021 CLINICAL HISTORY: 36-year-old female E06.3 autoimmune thyroiditis. TECHNIQUE: Multiple sonographic images of the thyroid gland are obtained. FINDINGS: GLAND SIZE: Right Lobe: 6.0 x 2.1 x 1.8 cm Overall Parenchyma: heterogenous Left Lobe: 6.3 x 2.1 x 1.8 cm. Java Developer Consultant notes: Measurement is limited. Overall Parenchyma: heterogeneous Isthmus Thickness: 0.26 cm NODULES RIGHT: # of nodules measured on right: 1 1. 0.8 X 0.5 x 0.4 cm, lower mid, cyst Prior size: 0.6 x 0.4 x 0.6 cm LEFT: # of nodules measured on left: 1 1. 0.7 X 0.7 x 0.3 cm, mid cystic or almost completely cystic, anechoic nodule, which is wider than tall, with smooth margins, without echogenic foci. Prior size: 0.5 x 0.3 x 0.5 cm ISTHMUS: # of nodules measured in the isthmus: 0 Bilateral neck scan: Java Developer Consultant notes: prominent lymph node along the left side of the neck measuring 2.0 x 1.0 x 0.4 cm. No definite parathyroid tissue visualized at this time. IMPRESSION: 1. Thyromegaly with very heterogeneous glandular parenchyma. Correlate for goiter or diffuse thyroidi tis. A couple discrete benign cysts are stable to minimally larger measuring up to 8 mm. 2. Borderline sized 1 cm short axis lymph node along the left side of the neck probably reactive/post inflammatory. Reassess at a 2-3 month follow-up ultrasound.
== END | disposition home or self-care (01) ==
LOC: RADUSWWP 13:20
PROVIDERS: ATTEND Family Medicine
DX: E06.3 Autoimmune thyroiditis (principal); R59.0 Localized enlarged lymph nodes
CPT/HCPCS: 76536

== ENCOUNTER → 2022-12-13 | Outpatient (CLI) | payer BC, OTHER ==
--- NOTE | 2022-12-15 08:10 | MM ---
Reason for Exam: Screening (asymptomatic). Baseline mammogram. Patient History: Menarche at age 12. First Full-Term at age 20. Premenopausal. Maternal grandmother had breast cancer. Last menstrual period: 12/02/2022 Risk Values: Roselyn 5 year model risk: 0.4%. NCI Lifetime model risk: 8.3%. Prior Study Comparison: Patient's first Mammogram. Tissue Density: The breast tissue is heterogeneously dense. This may lower the sensitivity of mammography. Findings: Analyzed By CAD. There is no suspicious group of microcalcifications or new suspicious mass in either breast. Overall Assessment: Negative, BI-RAD 1 Management: Screening Mammogram of both breasts in 1 year. . Patient should continue monthly self-breast exams. A clinical breast exam by your physician is recommended on an annual basis. This exam should not preclude additional follow-up of suspicious palpable abnormalities. Note on Roselyn scores and lifetime risk: 1. A Roselyn score greater than 3% is considered moderate risk. If this is the case, consider specialist referral to assess eligibility for a risk reducing agent. 2. If overall lifetime risk for the development of breast cancer is 20% or higher, the patient may qualify for future screening with alternating mammogram and breast MRI. Electronically signed and approved by: Obdulio Kern M.D. Radiologis
== END | disposition home or self-care (01) ==
LOC: RADMAMWWP 09:39
PROVIDERS: ATTEND Obstetrics & Gynecology
DX: Z12.31 Encounter for screening mammogram for malignant neoplasm of breast (principal); Z80.3 Family history of malignant neoplasm of breast
CPT/HCPCS: 77067

== ENCOUNTER → 2023-04-04 | Outpatient (CLI) | payer BC ==
--- NOTE | 2023-04-04 14:49 | US ---
EXAMINATION TYPE: US thyroid st tissue head/neck DATE OF EXAM: 04/04/2023 COMPARISON: US 03/30/2022 CLINICAL INDICATION: Female, 37 years old with history of E04.1 NONTOXIC THYROID NODULE; Thyroid nodu le. Patient has gracie's. GLAND SIZE: Right Lobe: 5.2 x 2.1 x 1.6 cm Overall Parenchyma: heterogenous Left Lobe: 5.5 x 2.1 x 1.4 cm Overall Parenchyma: heterogenous Isthmus Thickness: 0.29 cm NODULES RIGHT: # of nodules measured on right: 1 1. 0.6 X 0.5 x 0.4 cm, lower mid, Prior size: 0.8 x 0.5 x 0.4 cm TIRADS Score: 0 TIRADS Category 1: Benign Composition: Cystic or almost completely cystic (0 points). Recommendation: No FNA LEFT: # of nodules measured on left: 1 1. 0.6 X 0.6 x 0.4 cm, mid mid, Prior size: 0.7 x 0.7 x 0.3 cm TIRADS Score: 2 TIRADS Category 2: Not Suspicious Composition: Solid or almost completely solid (2 points). Echogenicity: Anechoic (0 points). Shape: Wider than tall (0 points). Margin: Smooth (0 points). Echogenic foci: None or large comet-tail artifacts (0 points) Recommendation: No FNA ISTHMUS: # of nodules measured in the isthmus: 0 Bilateral neck scanned, no evidence of lymphadenopathy. IMPRESSION: 1. No suspicious thyroid nodules. 2. Heterogenous thyroid gland compatible with patient's history of Gracie's thyroiditis
== END | disposition home or self-care (01) ==
LOC: RADUSWWP 13:33
PROVIDERS: ATTEND Family Medicine
DX: E04.1 Nontoxic single thyroid nodule (principal); E06.3 Autoimmune thyroiditis
CPT/HCPCS: 76536

== ENCOUNTER → 2023-07-19 | Outpatient (CLI) | payer BC | END | disposition home or self-care (01) | LOC: LABWHC1 09:29 | PROVIDERS: ATTEND Internal Medicine Rheumatology | DX: M25.50 Pain in unspecified joint (principal) | CPT/HCPCS: 36415; 83520; 86480 ==

== ENCOUNTER → 2023-12-05 | Outpatient (CLI) | payer BC ==
--- NOTE | 2023-12-05 12:03 | XR ---
EXAMINATION TYPE: XR Hip Bilateral Complete DATE OF EXAM: 12/05/2023 CLINICAL HISTORY: pain TECHNIQUE: AP and frogleg views of the right hip are obtained. COMPARISON: None. FINDINGS: There is no acute fracture/dislocation evident. The joint space appears within normal li mits. The overlying soft tissue appears unremarkable. IMPRESSION: 1. There is no acute fracture or dislocation. ICD 10 NO FRACTURE, INITIAL EVALUATION
== END | disposition home or self-care (01) ==
LOC: RADXRMAIN 09:27
PROVIDERS: ATTEND Family Medicine
DX: M16.0 Bilateral primary osteoarthritis of hip (principal)
CPT/HCPCS: 73521

== ENCOUNTER → 2024-07-17 | Outpatient (CLI) | payer BC ==
[2024-07-17 13:37] VITALS: BP 123/78; PULSE 67; RESP 16; TEMP 98.2
--- NOTE | 2024-07-17 14:11 | P.HPOB ---
History of Present Illness H&P Date: 07/17/24 Chief Complaint: The patient is here for her routine gynecologic exam and ma mmogram. This is a 38-year-old -0-2-3 with an LMP of 07/07/2024. The patient is here to establish with at this office. She previously saw Dr. Pearl for her gynecologic care. She was last seen by him about 1-1/2 years ago. She uses condoms and periodic abstinence for control. Her is looking into getting a vasectomy. Her menstrual periods are regular every month. She is w [facility] gynecologic complaints. Review of Systems The patient's weight has been stable over the last year. She denies respiratory, cardiac, or G.I. problems. Past Medical History Past Medical History: Thyroid Disorder Additional Past Medical History / Comment(s): hashimotos not requiring medication. Past [employer] history: Treated for chlamydia in approximately 2005. History of Any Multi-Drug Resistant Organisms: None Reported Past Surgical History: Section, Orthopedic Surgery, Tonsillectomy Additional Past Surgical History / Comment(s): knee arthroscopy. Emergency section with her last . Past Anesthesia/Blood Transfusion Reactions: No Reported Reaction Past Psychological History: No Psychological Hx Reported Smoking Status: Never smoker, Unknown if ever smoked Past Alcohol Use History: Rare (1-2 drinks per year.) Past Drug Use History: None Reported Additional History: She has been since 2021. She is a massage therapist. - Past Family History Father Family Medical History: Hypertension Mother Family Medical History: Cancer, Hypertension, Thyroid Disorder Additional Family Medical History / Comment(s): thyroid cancer. Maternal great grandmother had breast cancer. Medications and Allergies Home Medications Medication Instructions Recorded Confirmed Type No Known Home Medications 07/17/24 07/17/24 History Allergies Allergy/AdvReac Type Severity Reaction Status Date / Time Penicillins AdvReac Vomiting Verified 07/17/24 13:23 Exam Vital Signs Temp Pulse Pulse Resp BP 07/17/24 13:26 98.2 F 67 100 16 123/78 Intake and Output 07/16/24 07/17/24 07/17/24 22:59 06:59 14:59 Other: Weight 54.431 kg Height 5 feet 4 inches, weight 120 pounds, BMI 20.6. This is a well-developed well-nourished white female who is alert and oriented times 3 in no acute distress. HEENT: Within normal limits. NECK: Supple without mass or thyromegaly. CHEST AND LUNGS: Clear to auscultation. HEART: Regular rate and rhythm. BREASTS: Are without mass or discharge. AXILLARY EXAM: Negative for adenopathy. BACK: Negative for CVA tenderness. ABDOMEN: Soft, nontender, without palpable masses. PELVIC EXAM: Normal external genitalia. Cervix and vagina appear normal. There is no unusual discharge. There is no evidence of prolapse. The uterus is retroverted, nongravid size and nontender. There are no palpable adnexal masses or tenderness. RECTAL EXAM: negative for mass or tenderness and is negative for occult blood. EXTREMITIES: Nontender. IMPRESSION: 1. 38-year-old gynecologically healthy female using condoms and periodic abstinence for control, with normal gynecologic exam. 2. She and her are contemplating vasectomy for control. PLAN: 1. Pap smear cotest was performed. 2. Self breast awareness was discussed with the patient. We have also discussed symptoms associated with inflammatory breast cancer. 3. Screening mammogram will be done today. 4. Osteoporosis prevention was discussed. I have stressed the importance of adequate calcium, vitamin D and regular exercise. Recommended amounts of calcium and vitamin D were also discussed. 5. She was advised to return in one year for her annual well woman exam.
--- NOTE | 2024-07-17 14:36 | MM ---
Reason for Exam: Screening (asymptomatic). Last mammogram was performed 1 year(s) and 7 month(s) ago. Patient History: Menarche at age 12. First Full-Term at age 20. Premenopausal. Patient used Hormonal Contraceptives for 2 years. Maternal grandmother had breast cancer. Risk Values: Roselyn 5 year model risk: 0.5%. NCI Lifetime model risk: 8.3%. Prior Study Comparison: 12/13/2022 Bilateral MG screening mammo w CAD, [facility]. Tissue Density: The breasts are extremely dense, which lowers the sensitivity of mammography. Findings: Analyzed By CAD. There are diffuse and loosely grouped tiny benign-appearing round calcifications bilaterally redemonstrated. There is no suspicious new distortion or new suspicious mass in either breast. Group of indistinct calcifications middle to posterior depth outer aspect right breast cc view only warrants further workup. Overall Assessment: Incomplete: need additional imaging evaluation, BI-RAD 0 Management: Special View Mammogram of the right breast. Return for additional spot CC magnification view and 3-D true lateral view right breast. Patient should continue monthly self-breast exams. A clinical breast exam by your physician is recommended on an annual basis. This exam should not preclude additional follow-up of suspicious palpable abnormalities. Note on Roselyn scores and lifetime risk: 1. A Roselyn score greater than 3% is considered moderate risk. If this is the case, consider specialist referral to assess eligibility for a risk reducing agent. 2. If overall lifetime risk for the development of breast cancer is 20% or higher, the patient may qualify for future screening with alternating mammogram and breast MRI. [facility], , 07/17/2024 2:33 PM. Electronically signed and approved by: Marco Cox M.D.
== END ==
LOC: WWCWWP 12:58
PROVIDERS: ATTEND Obstetrics & Gynecology
DX: Z12.31 Encounter for screening mammogram for malignant neoplasm of breast (principal); Z88.0 Allergy status to penicillin
CPT/HCPCS: 77063; 77067